=== PATIENT | female | born 1935 | race Caucasian/White ===

== ENCOUNTER → 2016-05-24 | Outpatient (CLI) | payer MEDICARE, BC ==
--- NOTE | 2016-05-24 15:17 | XR ---
EXAMINATION TYPE: XR chest 2V DATE OF EXAM: 05/24/2016 2:42 PM COMPARISON: Prior chest x-ray July HISTORY: Cough, abnormal chest x-ray TECHNIQUE: Frontal and lateral views of the chest are obtained. FINDINGS: Pacemaker is present with the generator in the left pectoral region, leads are present in the right atrium and ventricle. No evident pneumothorax or pleural effusion. Old right-sided rib frac tures are again noted, interstitium is prominent as is lung volume as on prior exam consistent with e mphysema. Cardiomediastinal silhouette, pulmonary vascularity and polo are stable. IMPRESSION: Stable exam. Interstitial lung disease.
== END | disposition home or self-care (01) ==
LOC: RADXRMAIN 14:25
PROVIDERS: ATTEND Internal Medicine
DX: J84.9 Interstitial pulmonary disease, unspecified (principal)
CPT/HCPCS: 71020

== ENCOUNTER 2016-12-08 13:41 | Emergency (ER) | payer MEDICARE, BC ==
[2016-12-08 13:47] VITALS: BP 124/59; PULSE 76; RESP 20; TEMP 97.9
--- NOTE | 2016-12-08 14:02 | ED ---
Fall HPI - General Chief Complaint: Fall Stated Complaint: fall/rt shoulder injury Time Seen by Provider: 12/08/16 13:49 Source: patient, RN notes reviewed, old records reviewed Mode of arrival: wheelchair - History of Present Illness Initial Comments: Physical is an 81-year-old female presenting to emergency Department with right shoulder and elbow pain. Patient reports that she was walking out of her kitchen, and tripped over a small step. Patient reports that she felt that time and majority of her weight landed on her right elbow and right shoulder. Denies any wrist or hand pain. Patient states that is very painful for her to move her shoulder. Patient states that she's been putting ice on it. Patient relates that she is right-handed. She states that she also has previous injuries to her right hip but denies any difficulty with ambulation. Patient denies any head injury or neck injury. She reports that she did not hit her head on the fall. Patient has a history of A. fib, she does have a pacemaker in place and is on Coumadin. Patient denies any recent fever, chills, shortness of breath, chest pain, back pain, abdominal pain, nausea vomiting, numbness or tingling, dysuria or hematuria, constipation or diarrhea, headaches or visual changes, or any other current symptoms - Related Data Home Medications Medication Instructions Recorded Confirmed Warfarin [Coumadin] 5 mg PO MOFR 08/28/13 01/28/15 ALPRAZolam 0.5 mg PO DAILY 05/22/14 01/28/15 Chlorthalidone 50 mg PO DAILY 05/22/14 01/28/15 Cholecalciferol [Vitamin D3] 1,000 unit PO DAILY 05/22/14 01/28/15 Potassium Gluconate(595mg) 595 mg PO BID 05/22/14 01/28/15 Pravastatin Sodium 40 mg PO HS 05/22/14 01/28/15 Warfarin [Coumadin] 7.5 mg PO SUTUWETHSA 05/22/14 01/28/15 Cyanocobalamin [Vitamin B-12] 500 mcg PO DAILY 01/28/15 01/28/15 Previous Rx's Medication Instructions Recorded Atenolol [Tenormin] 50 mg PO BID #60 tab 02/01/15 Furosemide [Lasix] 20 mg PO DAILY #60 tab 02/01/15 Acetaminophen-Codeine 300-30mg 1 tab PO Q6H PRN #15 tablet 12/08/16 [Tylenol #3] Allergies Allergy/AdvReac Type Severity Reaction Status Date / Time Nitroimidazoles Allergy Unknown Verified 12/08/16 13:47 Tetracyclines Allergy Unknown Verified 12/08/16 13:47 niacin AdvReac Unknown Verified 12/08/16 13:47 Niacin Preparations AdvReac Unknown Verified 12/08/16 13:47 pantoprazole sodium AdvReac Nausea & Verified 12/08/16 13:47 [From Protonix] Vomiting Penicillins AdvReac COULDN'T Verified 12/08/16 13:47 WALK NEXT DAY AFTER TAKING Review of Systems ROS Statement: Those systems with pertinent positive or pertinent negative responses have been documented in the HPI. ROS Other: All systems not noted in ROS Statement are negative. Past Medical History Past Medical History: Atrial Fibrillation, Hypertension Additional Past Medical History / Comment(s): ovarian CA History of Any Multi-Drug Resistant Organisms: None Reported Past Surgical History: Ablation, Appendectomy, Hernia Repair, Hysterectomy Additional Past Surgical History / Comment(s): ovarian surgery, hemmorhoid surgery, ([employer]) pacemaker placed in 05/2014 Past Psychological History: No Psychological Hx Reported Smoking Status: Never smoker Past Alcohol Use History: None Reported Past Drug Use History: None Reported - Past Family History Mother Family Medical History: Cancer Father History Unknown: Yes Additional Family Medical History / Comment(s): very early General Exam - General Exam Comments Initial Comments: This is a 81-year-old female. Patient does not appear to be in any acute distress. Limitations: no limitations General appearance: alert, in no apparent distress Head exam: Present: atraumatic, normocephalic, normal inspection Eye exam: Present: normal appearance, PERRL, EOMI. Absent: scleral icterus, conjunctival injection, periorbital swelling ENT exam: Present: normal exam, mucous membranes moist Neck exam: Present: normal inspection. Absent: tenderness, meningismus, lymphadenopathy Respiratory exam: Present: normal lung sounds bilaterally. Absent: respiratory distress, wheezes, rales, rhonchi, stridor Cardiovascular Exam: Present: regular rate, normal rhythm, normal heart sounds. Absent: systolic murmur, diastolic murmur, rubs, gallop, clicks GI/Abdominal exam: Present: soft, normal bowel sounds. Absent: distended, tenderness, guarding, rebound, rigid Extremities exam: Present: normal inspection, full ROM, normal capillary refill. Absent: tenderness, pedal edema, joint swelling, calf tenderness Right Shoulder Exam: Present: deformity. Absent: normal inspection, full ROM ( Patient unable to flex and extend shoulder. ) Elbow exam: Present: tenderness (over olecranon process ), abrasion. Absent: normal inspection Forearm Wrist exam: Present: normal inspection Hand Wrist exam: Present: normal inspection, full ROM Neuro motor exam: Present: wrist extension intact, thumb opposition intact, thumb IP flexion intact, thumb adduction intact, fingers 2-5 abduction intact Vascular: Present: normal capillary refill Back exam: Present: normal inspection Neurological exam: Present: alert, oriented X3, CN II-XII intact Psychiatric exam: Present: normal affect Skin exam: Present: warm, dry, intact, normal color. Absent: rash Course Vital Signs 12/08/16 13:43 Temperature 97.9 F Pulse Rate 76 Respiratory 20 Rate Blood Pressure 124/59 O2 Sat by Pulse 95 Oximetry Medical Decision Making - Medical Decision Making Physical is an 81-year-old female presenting to emergency Department with right shoulder and elbow pain. Patient reports that she was walking out of her kitchen, and tripped over a small step. Patient reports that she felt that time and majority of her weight landed on her right elbow and right shoulder. Denies any wrist or hand pain. Patient states that is very painful for her to move her shoulder. Patient states that she's been putting ice on it. Patient relates that she is right-handed. She states that she also has previous injuries to her right hip but denies any difficulty with ambulation. Patient denies any head injury or neck injury. She reports that she did not hit her head on the fall. Patient has a history of A. fib, she does have a pacemaker in place and is on Coumadin. is somewhat tender over the EC process, as well as some mild abrasions over her elbow. She is somewhat tender over the olecranon process. She does have some pain with range of motion of her shoulder. X-rays were performed. Negative for any significant fracture or dislocation. Patient was informed of these results and is very pleased. Patient was placed in a sling. Discussed they do on her follow-up with orthopedic physician as she seems to have a rotator cuff injury and tear as well as a minor before meals joint contusion. Patient understands treatment plan will comply. Discussed icing and taking Motrin and Tylenol. Return parameters were discussed. - Radiology Data Radiology results: report reviewed There is loss of the glenohumeral joint with marginal spring. Subchondral sclerosis. Hypertrophic changes present at the proximal medicine humerus calcification may represent local rotator cuff insertion is on prior chest x- ray. Bone mineralization is reduced. Hypertrophic change at the before meals joint. Overall impression is no acute fracture dislocation evident. Gastroenteritis. Possible calcific tendinitis rotator cuff. Surgery of the elbow shows no acute fracture dislocation. Disposition Clinical Impression: Injury of right rotator cuff, Fall Disposition: HOME SELF-CARE Condition: Good Instructions: Fall Prevention for Older Adults (ED) Additional Instructions: Advised to take Motrin or Tylenol for pain. Follow-up with orthopedic physician. Return to the emergency department if any alarming signs or symptoms occur. Prescriptions: Acetaminophen-Codeine 300-30mg [Tylenol #3] 1 tab PO Q6H PRN #15 tablet PRN Reason: Pain Referrals: Amelia Cuenca MD [Primary Care Provider] - 1-2 days Ferny Merchant DO [Doctor of Osteopathic Medicine] - 1-2 days Time of Disposition: 14:47
--- NOTE | 2016-12-08 14:24 | XR ---
EXAMINATION TYPE: XR elbow complete RT DATE OF EXAM: 12/08/2016 CLINICAL HISTORY: Right elbow pain after fall injury today TECHNIQUE: Frontal, lateral and oblique images of the right elbow are obtained. COMPARISON: None FINDINGS: There is no acute fracture/dislocation evident in the right elbow. No abnormal fat pad si gns are seen. The overlying soft tissue appears unremarkable. IMPRESSION: There is no acute fracture or dislocation in the right elbow.
--- NOTE | 2016-12-08 14:26 | XR ---
Right shoulder HISTORY: Trauma and pain 3 views of the right shoulder Chest x-ray 05/24/2016 There is joint space loss of the glenohumeral joint with marginal spurring, subchondral sclerosis. Hy pertrophic changes present at the proximal metaphysis of the right humerus, calcification may be pres ent at the level of the rotator cuff insertion as on prior chest x-ray. Bone mineralization is somewh at reduced. Hypertrophic change present at the acromioclavicular joint. Old right-sided rib fractures which have healed are present and noted incidentally at the 6 and seventh ribs posterior laterally. Pacemaker leads are noted incidentally. IMPRESSION: No acute fracture or dislocation is evident. Osteoarthritis. Possible calcific tendinitis rotator cuff.
== END 2016-12-08 14:58 | disposition home or self-care (01) ==
LOC: EC 13:41
DX: S46.001A Unspecified injury of muscle(s) and tendon(s) of the rotator cuff of right shoulder, initial encounter (principal); I10 Essential (primary) hypertension; I48.91 Unspecified atrial fibrillation; Z85.43 Personal history of malignant neoplasm of ovary; Z95.0 Presence of cardiac pacemaker; Z88.1 Allergy status to other antibiotic agents; Z88.0 Allergy status to penicillin; Z88.8 Allergy status to other drugs, medicaments and biological substances; Z79.01 Long term (current) use of anticoagulants; Z79.899 Other long term (current) drug therapy; W01.0XXA Fall on same level from slipping, tripping and stumbling without subsequent striking against object, initial encounter; Y93.01 Activity, walking, marching and hiking; Y92.090 Kitchen in other non-institutional residence as the place of occurrence of the external cause
CPT/HCPCS: 99284

== ENCOUNTER → 2017-04-20 | Outpatient (CLI) | payer MEDICARE, BC | END | disposition home or self-care (01) | LOC: LABPAT 12:40 | PROVIDERS: ATTEND Orthopaedic Surgery | DX: Z01.812 Encounter for preprocedural laboratory examination (principal) | CPT/HCPCS: 87070 ==

== ENCOUNTER → 2017-04-27 | Outpatient (CLI) | payer MEDICARE, BC ==
[2017-04-27 10:30] LABS: HCT 45.4 % (34.0-46.0); HGB 14.8 gm/dL (11.4-16.0); MCH 28.6 pg (25.0-35.0); MCHC 32.7 g/dL (31.0-37.0); MCV 87.4 fL (80.0-100.0); Mean Platelet Volume 8.7; Platelet Count 174 k/uL (150-450); RBC 5.19 m/uL (3.80-5.40); RDW 13.6 % (11.5-15.5); WBC 7.6 k/uL (3.8-10.6)
[2017-04-27 10:33] LABS: Appearance,Urine Clear (Clear); Bilirubin,Urine Negative (Negative); Blood,Urine Negative (Negative); Color,Urine Yellow; Glucose,Urine (UA) Negative (Negative); Ketones,Urine Negative (Negative); Leukocyte Esterase,Urine Negative (Negative); Nitrite,Urine Negative (Negative); Protein,Urine Negative (Negative); Specific Gravity,Urine 1.006 (1.001-1.035); Urobilinogen,Urine <2.0 mg/dL (<2.0)
[2017-04-27 10:37] LABS: INR 1.5 (<1.2); Partial Thromboplastin Time 27.7 sec (22.0-30.0); Prothrombin Time 14.1 sec (9.0-12.0)
[2017-04-27 10:52] LABS: ALT 31 U/L (9-52); AST 35 U/L (14-36); Albumin 4.3 g/dL (3.5-5.0); Alkaline Phosphatase 103 U/L (38-126); Anion Gap 12 mmol/L; Blood Urea Nitrogen 18 mg/dL (7-17); Carbon Dioxide 30 mmol/L (22-30); Chloride 97 mmol/L (98-107); Glucose 86 mg/dL (74-99); Potassium 3.6 mmol/L (3.5-5.1); Sodium 139 mmol/L (137-145); Total Bilirubin 0.9 mg/dL (0.2-1.3); Total Protein 6.8 g/dL (6.3-8.2)
== END | disposition home or self-care (01) ==
LOC: LABPAT 09:39
PROVIDERS: ATTEND Orthopaedic Surgery
DX: Z01.812 Encounter for preprocedural laboratory examination (principal); M16.11 Unilateral primary osteoarthritis, right hip; Z79.01 Long term (current) use of anticoagulants
CPT/HCPCS: 36415; 80053; 81003; 85027; 85610; 85730

== ENCOUNTER 2017-04-30 06:07 | Inpatient (IN) | payer MEDICARE, BC ==
[2017-04-19 11:42] VITALS: BMI 27.1
[~2017-04-30 06:07] MED LIST: ACETAMINOPHEN TAB 500 MG TAB PO ONE; HYDROmorphone 0.5 MG/0.5 ML SYRINGE IVP PRN; MELOXICAM 7.5 MG TAB PO ONE; MORPHINE SULFATE 4 MG/ML SYRINGE IV PRN; ONDANSETRON 4 MG/2 ML VIAL IVP PRN; ROPIVACAINE 246.25 MG, EPINEPHrine 0.5 MG, KETOROLAC 30 MG, cloNIDine HCL/PF 80 MCG, WA... MISCELLANE ONE; TRANEXAMIC ACID 1,000 MG in SODIUM CHLORIDE 0.9% 50 ML IVPB ONE; ceFAZolin IN SWFI 2 GM/20 ML SYRINGE IVP ONE
[2017-04-30] MEDS: LACTATED RINGERS 1,000 ML IV SCH ×4 (06:37→23:57)
[2017-04-30 06:57] LABS: INR 1.1 (<1.2); Prothrombin Time 10.9 sec (9.0-12.0)
[2017-04-30] MEDS ORDERED: DEXAMETHASONE SOD PHOSPHATE 10 MG/ML 1 ML VIAL IV ONE (07:08)
[2017-04-30] MEDS ORDERED: SODIUM CHLORIDE 0.9% 100 ML BAG ONE (07:24)
[2017-04-30] MEDS ORDERED: fentaNYL (PF) 50 MCG/ML 2 ML AMP ONE (07:24)
[2017-04-30] MEDS ORDERED: MIDAZOLAM 2 MG/2 ML VIAL ONE (07:24)
[2017-04-30] MEDS ORDERED: diphenhydrAMINE 50 MG/ML 1 ML VIAL ONE (07:24)
[2017-04-30] MEDS ORDERED: TRANEXAMIC ACID 1,000 MG/10 ML VIAL ONE (07:24)
[2017-04-30] MEDS ORDERED: SODIUM CHLORIDE 0.9% 1,000 ML BAG ONE (07:24)
[2017-04-30] MEDS ORDERED: HEPARIN SODIUM,PORCINE 5,000 UNIT/ML 1 ML VIAL ONE (07:24)
[2017-04-30] MEDS ORDERED: ceFAZolin 1,000 MG in SODIUM CHLORIDE 0.9% 1,000 ML IRRIGATION ONE ×2 (07:25→08:42)
[2017-04-30] MEDS ORDERED: MAGNESIUM HYDROXIDE 2,400 MG/10 ML CUP PO PRN (07:27)
[2017-04-30] MEDS ORDERED: hydrOXYzine PAMOATE 25 MG CAP PO PRN (07:27)
[2017-04-30] MEDS ORDERED: DIAZEPAM 5 MG TAB PO PRN ×2 (07:27)
[2017-04-30] MEDS ORDERED: NALOXONE 0.4 MG/ML 1 ML VIAL IV PRN (07:27)
[2017-04-30] MEDS ORDERED: HYDROmorphone 0.5 MG/0.5 ML SYRINGE IVP PRN ×3 (07:27)
[2017-04-30] MEDS ORDERED: SODIUM CHLORIDE 0.9% 1,000 ML IV SCH (07:30)
[2017-04-30] MEDS ORDERED: LACTATED RINGERS 1,000 ML IV ONE (09:03)
--- NOTE | 2017-04-30 09:06 | P.OP ---
Date of Procedure: 04/30/17 Preoperative Diagnosis: Severe osteoarthritis right hip Postoperative Diagnosis: Severe osteoarthritis right hip Procedure(s) Performed: Right total hip arthroplasty with a direct anterior approach Implants: Masters and nephew Polarstem size 4 standard Masters [employer] Nephew R3, 3 hole acetabular shell, 52 mm [employer]hew reflection 6.5 mm cancellus screw, 20 mm 2 [employer]hew R3, XLPE 20 acetabular liner [employer] Nephew Oxinium femoral head 36 m, +4 All components were press-fit. The articulation is Oxinium on polyethylene. Anesthesia: spinal Surgeon: Ferny Merchant Manager Sustainability #1: Mimi Cooper Estimated Blood Loss (ml): 100 Pathology: other (Femoral head) Condition: stable Disposition: PACU Indications for Procedure: After failure of conservative treatment we discussed the surgical and nonsurgical treatment options at length. Patient wishes to proceed with a total hip arthroplasty with a direct anterior approach. Complications specific to this procedure were discussed at length, including but not limited to infection, leg length discrepancy, dislocation, and nerve injury. Patient is aware of all these complications and informed consent was obtained Operative Findings: The operative findings are consistent with severe osteoarthritis of the right hip Description of Procedure: Patient was seen and evaluated in the preoperative area, consent was reviewed, and the surgical site was marked with a skin marker. Patient was then brought to the operating room and given prophylactic antibiotics intravenously. 1 g of Tranexamic acid was also given. A spinal anesthetic was administered by the anesthesia department. The patient was then placed on the [place] table with the bony prominences well-padded. The hip area was then prepped and draped in usual sterile fashion. A universal timeout was then performed, which confirmed the patient's name, surgical site, ALLERGIES, and procedure being performed. Next the incision site was located at 1 cm distal and 1 cm lateral to the anterior superior iliac spine. The skin and subcutaneous tissues were sharply incised. Incision was carefully dissected down to the fascia overlying the tensor fascia annetta muscle. This fascia was then incised in line with the incision. Next, using blunt finger dissection, the tensor fascia annetta muscle was dissected off its investing fascia. The muscle was then carefully retracted laterally with a cobra retractor over the lateral neck of the femur. Next, the circumflex vessels were identified and cauterized using the AquaMantis device. The anterior hip capsule was then exposed. The capsule was then opened and an inverted T fashion. Cobra retractors were then placed intracapsularly. The proximal femur was then visualized. The femoral neck was then osteotomized appropriate level above the lesser trochanter. Small amount of traction was placed with the [place] table. A small wedge of bone was then removed from the remaining femoral head. Next, using a corkscrew femoral head was easily removed from the acetabulum. On gross visual inspection, the femoral head had complete loss of articular cartilage in multiple periarticular osteophytes. Attention was then turned to the acetabulum. the acetabulum was exposed and any remaining labrum was excised. Sequential reaming of the acetabulum was performed using fluoroscopic guidance. When the appropriate size was reached, a trial was then placed. The position and fit of the trial was checked with fluoroscopy. The trial was then removed. Then, using fluoroscopic guidance, the final implant was impacted at 20 of anteversion and 40 of abduction, and fully seated in the acetabulum. 2 screws were then placed in the acetabulum. Again fluoroscopy was used to check position of the screws. Next, the liner was then impacted, with a 20 elevated liner located in the anterior superior quadrant. Component locking was confirmed. Attention was then directed to the femur. With the aid of the [place] table, the femur was externally rotated to approximately 130, extended, and abducted under the opposite leg. A side hook was then placed under the proximal femur, and the side hook elevator was used to elevate the proximal femur. Retractors were then placed. A capsular release was performed, as well as a release of the conjoined tendon, which afforded excellent visualization of the proximal femur. Next, a box osteotome was used to lateralize the proximal femur. A button sewer hand was then used to locate the femoral canal. Sequential broaching was then performed with appropriate size which afforded excellent fixation in the proximal femur. A trial was then placed with appropriate head and neck, and the hip was gently reduced with the aid of the [place] table. Fluoroscopy was then used to check position of the components, as well as to ensure equal leg lengths. The hip was then gently dislocated and the trials were then removed. Final implants were then impacted and the hip was again reduced. Final fluoroscopic x-rays confirmed that the components were in anatomic position, as well as equal leg lengths. The hip was also taken through range of motion, and found to be stable. The hip was then copiously irrigated with antibiotic solution with pulsatile lavage. The hip was then irrigated with Irrisept solution. The soft tissues were then injected with a ropivacaine solution, which consisted of 246.25 mg of ropivacaine, 0.5 mg of epinephrine, 30 mg of Toradol, 80 g of clonidine, and 48.45 mL of sterile water, for a total of 100 mL of fluid injected. A second dose of 1 g of Tranexamic acid was also given. the fascia was then closed with 2-0 strata fix suture. The subcutaneous tissue was closed with 3-0 Vicryl. The subcuticular tissue was closed with 3-0 strata fix suture. The skin was then closed with Dermabond glue and a sterile silver dressing. The patient was then transferred to the recovery room in stable condition. The health center assistant JUSTIN Sanz was required due to the complexity of surgery, and the need for skilled animal assistant for positioning, draping, exposure, retraction, and closure of the wound.
--- NOTE | 2017-04-30 09:48 | XR ---
Limited right hip HISTORY: Postop Single frontal view of the right hip Patient is status post right hip arthroplasty. There is anatomic alignment. Lucency present in the so ft tissues compatible with postop state. IMPRESSION: Orthopedic follow-up
--- NOTE | 2017-04-30 11:04 | XR ---
Limited right hip HISTORY: Status post hip arthroplasty 2 intraoperative C-arm images document the procedure
--- NOTE | 2017-04-30 11:22 | FL ---
Fluoroscopy HISTORY: Hip replacement 1.11 minutes fluoroscopy time supplied to the referring clinician. 2 intraoperative C-arm images doc ument the procedure. See dictated report from orthopedic surgery.
[2017-04-30] MEDS ORDERED: ALPRAZolam 0.5 MG TAB PO PRN (14:44)
--- NOTE | 2017-04-30 15:05 | P.CONS ---
History of Present Illness - Reason for Consult Consult date: 04/30/17 Medical management Requesting physician: Ferny Merchant - Chief Complaint Status post right total hip arthroplasty - History of Present Illness This is a 82-year-old female with a past medical history of paroxysmal atrial fibrillation, chronic diastolic congestive heart failure, hypertension, hyperlipidemia and pacemaker placement. Patient has a known history of arthritis or arthritis of the right hip and underwent a right total hip arthroplasty with Dr. Merchant. She tolerated surgery well. Estimated blood loss was 100 mL. She is currently sitting up at bedside chair with family at bedside. Patient's pain is controlled. She denies any chest pain or shortness breath. Denies any nausea or vomiting. Denies any bowel movement changes or urinary symptoms. Postop blood pressures she had some evidence of hypotension. We'll have nursing staff repeat blood pressure. We'll hold diuretics. And place parameters around the metoprolol and Cardizem. Review of Systems Please refer to HPI otherwise unremarkable Past Medical History Past Medical History: Atrial Fibrillation, Heart Failure, Hyperlipidemia, Hypertension Additional Past Medical History / Comment(s): ovarian CA 1980 History of Any Multi-Drug Resistant Organisms: None Reported Past Surgical History: Appendectomy, Cardiac Ablation, Hernia Repair, Hysterectomy, Joint Replacement, Pacemaker Additional Past Surgical History / Comment(s): ovarian surgery, hemmorhoid surgery, (meditronic) pacemaker placed in 05/2014,cardiac ablation, right hip replacement Past Anesthesia/Blood Transfusion Reactions: No Reported Reaction Additional Past Anesthesia/Blood Transfusion Reaction / Comm: unknown family hx.no problems with prior blood transfusion > 40 yrs ago Type of Cardiac Device: Permanent Pacemaker Device Placement Date:: 05/2014 Past Psychological History: Anxiety Smoking Status: Former smoker Past Alcohol Use History: None Reported Additional Past Alcohol Use History / Comment(s): quit smoking 1985,started smoking at age 17,1ppd Past Drug Use History: None Reported - Past Family History Mother Family Medical History: Cancer Father History Unknown: Yes Additional Family Medical History / Comment(s): very early Medications and Allergies Home Medications Medication Instructions Recorded Confirmed Type Warfarin [Coumadin] 5 mg PO MOTUWEFRSA 08/28/13 04/30/17 History ALPRAZolam 0.5 mg PO BID PRN 05/22/14 04/30/17 History Chlorthalidone 50 mg PO DAILY 05/22/14 04/30/17 History Cholecalciferol [Vitamin D3] 1,000 unit PO DAILY 05/22/14 04/30/17 History Pravastatin Sodium 40 mg PO HS 05/22/14 04/30/17 History Warfarin [Coumadin] 7.5 mg PO SUTH 05/22/14 04/30/17 History Furosemide [Lasix] 20 mg PO DAILY #60 tab 02/01/15 04/30/17 Rx ALPRAZolam [Xanax] 0.25 mg PO HS 04/19/17 04/30/17 History Diltiazem HCl [Cartia Xt] 120 mg PO BID 04/19/17 04/30/17 History Metoprolol Tartrate [Lopressor] 50 mg PO BID 04/19/17 04/30/17 History Potassium 198 mg PO DAILY 04/19/17 04/30/17 History Vitamin B Complex 1 cap PO DAILY 04/19/17 04/30/17 History Allergies Allergy/AdvReac Type Severity Reaction Status Date / Time Nitroimidazoles Allergy Unknown Verified 04/30/17 11:22 Tetracyclines Allergy Unknown Verified 04/30/17 11:22 niacin AdvReac Unknown Verified 04/30/17 11:22 Niacin Preparations AdvReac Unknown Verified 04/30/17 11:22 pantoprazole sodium AdvReac Nausea & Verified 04/30/17 11:22 [From Protonix] Vomiting Penicillins AdvReac COULDN'T Verified 04/30/17 11:22 WALK NEXT DAY AFTER TAKING Physical Exam Vitals: Vital Signs Temp Pulse Pulse Resp BP BP Pulse Ox 04/30/17 12:50 84 109/72 04/30/17 12:35 125 H 106/67 04/30/17 12:20 95 84/49 04/30/17 12:05 81 93/47 04/30/17 11:50 90 97/52 04/30/17 11:35 77 94/57 04/30/17 11:20 76 88/47 04/30/17 11:05 72 98/53 04/30/17 10:50 93 96/67 04/30/17 10:35 77 90/54 04/30/17 10:20 76 107/59 04/30/17 10:05 97.6 F 86 16 100/52 95 04/30/17 09:47 114 H 16 104/49 93 L 04/30/17 09:30 91 16 101/59 100 04/30/17 09:15 90 16 102/51 100 04/30/17 09:12 97.8 F 90 16 91/53 100 04/30/17 06:55 97.3 F L 73 18 123/61 96 04/30/17 01:05 99 112/61 Intake and Output 04/29/17 04/30/17 04/30/17 22:59 06:59 14:59 Intake Total 1102 Output Total 100 Balance 1002 Intake: IV 1102 Output: Estimated Blood Loss 100 Other: Weight 71.668 kg Patient Weight 05/01/17 06:59 Weight 71.668 kg Head normocephalic Neck supple Lungs clear to auscultation bilaterally no wheezing or crackles Heart regular rate and rhythm S1-S2, no rub or gallop Abdomen is soft nontender nondistended positive bowel sounds no hepatosplenomegaly Extremities no edema. YOSEPH hose in place. Pedal patient is able to wiggle her toes. +2 dorsalis pedis pulse. No numbness with palpation of her feet and legs. Dressing on the right hip clean dry and intact Neuro alert and orientated to 3 Assessment and Plan Assessment: 1. Osteoarthritis of the right hip status post right total hip arthroplasty anterior approach. Estimated blood loss 100 mL. Continue with current pain medications. Patient restarted on her Coumadin for DVT prophylaxis 2. History of paroxysmal atrial fibrillation: Anticoagulated with Coumadin at home. Coumadin had been on hold prior to surgery. Coumadin will be restarted tonight by orthopedics. Monitor PT/INRs. Continue metoprolol and Cardizem for rate control 3. Essential hypertension: Patient has had some episodes of hypotension after surgery. She is receiving fluids. Repeat blood pressure has been ordered. At this time we'll hold her Lasix and hydrochlorothiazide. Place parameters around the metoprolol to hold for systolic blood pressure less than 110 or heart rate less than 55 and Cardizem hold for systolic blood pressure less than 115 4. History of pacemaker 5. History of chronic diastolic CHF. No evidence of exacerbation 6. History of ovarian cancer 7. Generalized anxiety disorder continue with her Xanax 8. Hyperlipidemia continue her pravastatin GI prophylaxis Pepcid and DVT prophylaxis Coumadin Thank you for this consultation. We will continue to follow along with patient during her hospitalization. Time with Patient: Greater than 30 (Greater than 50% of the total time spent in counseling and coordination of care.I performed an examination of the patient and discussed their management with the physician Pharmacy Sales Representative. I have reviewed the Physician Pharmacy Sales Representative's notes and agree with the documented findings and plan of care)
[2017-04-30] MEDS: ceFAZolin IN SWFI 2 GM/20 ML SYRINGE IVP SCH ×2 (17:46→23:04)
[2017-04-30] MEDS ORDERED: WARFARIN 2.5 MG TAB PO ONE (18:00)
[2017-04-30] MEDS ORDERED: SODIUM CHLORIDE 0.9% 250 ML IV ONE (22:22)
[2017-04-30] MEDS: ALPRAZolam 0.25 MG TAB PO SCH (22:29)
[2017-04-30] MEDS: HYDROcodone/APAP 5-325MG 1 EACH TAB PO PRN (22:29)
[2017-04-30] MEDS: DILTIAZEM CD 120 MG CAP.ER.24H PO SCH (22:30)
[2017-04-30] MEDS: METOPROLOL TARTRATE 50 MG TAB PO SCH (22:34)
[2017-04-30] MEDS: PRAVASTATIN SODIUM 40 MG TAB PO SCH (22:34)
[2017-04-30] MEDS: SODIUM CHLORIDE 0.9% 1,000 ML IV SCH (23:57)
[2017-05-01 07:38] LABS: Basophils % (A) 0 %; Eosinophils % (A) 0 %; HCT 35.3 % (34.0-46.0); HGB 11.9 gm/dL (11.4-16.0); Lymphocytes # (A) 1.1 k/uL (1.0-4.8); Lymphocytes % (A) 9 %; MCH 29.3 pg (25.0-35.0); MCHC 33.6 g/dL (31.0-37.0); MCV 87.3 fL (80.0-100.0); Mean Platelet Volume 8.5; Monocytes # (A) 0.6 k/uL (0-1.0); Monocytes % (A) 5 %; Neutrophils # (A) 10.9 k/uL (1.3-7.7); Neutrophils % (A) 85 %; Platelet Count 132 k/uL (150-450); RBC 4.05 m/uL (3.80-5.40); RDW 13.7 % (11.5-15.5); WBC 12.8 k/uL (3.8-10.6)
[2017-05-01 07:40] LABS: INR 1.1 (<1.2)
[2017-05-01 07:46] LABS: ALT 24 U/L (9-52); AST 44 U/L (14-36); Albumin 3.1 g/dL (3.5-5.0); Alkaline Phosphatase 73 U/L (38-126); Anion Gap 11 mmol/L; Blood Urea Nitrogen 18 mg/dL (7-17); Carbon Dioxide 28 mmol/L (22-30); Chloride 98 mmol/L (98-107); Glucose 154 mg/dL (74-99); Potassium 3.2 mmol/L (3.5-5.1); Sodium 137 mmol/L (137-145); Total Bilirubin 0.9 mg/dL (0.2-1.3); Total Protein 5.1 g/dL (6.3-8.2)
[2017-05-01] MEDS ORDERED: METOPROLOL TARTRATE 25 MG TAB PO STA (08:23)
[2017-05-01] MEDS: METOPROLOL TARTRATE 50 MG TAB PO SCH ×2 (08:24→21:03)
[2017-05-01] MEDS: DILTIAZEM CD 120 MG CAP.ER.24H PO SCH ×2 (08:24→21:04)
[2017-05-01] MEDS ORDERED: POTASSIUM CHLORIDE ER 20 MEQ TAB.ER PO STA (08:31)
--- NOTE | 2017-05-01 09:52 | P.PN ---
Subjective Progress Note Date: 05/01/17 This is an 82-year-old female who is status post right total hip arthroplasty. This is postoperative day #1. Patient states her pain is well-controlled and she has been up and walking without difficulty. Patient denies any fever/chills , numbness, weakness, tingling, abdominal pain, shortness of breath or chest pain. Objective - Vital Signs Vital signs: Vital Signs Temp 97.6 F 05/01/17 07:00 Pulse 95 05/01/17 07:00 Resp 16 05/01/17 07:00 BP 99/63 05/01/17 07:00 Pulse Ox 96 05/01/17 07:00 Intake & Output 04/30/17 05/01/17 05/01/17 18:59 06:59 18:59 Intake Total 1297 1127.5 Output Total 100 Balance 1197 1127.5 Weight 71.668 kg Intake: IV 1102 Intake, IV Titration 195 927.5 Amount Sodium Chloride 0.9% 1, 927.5 000 ml @ 100 mls/hr IV . Q10H [facility] Rx#:[id number] Sodium Chloride 0.9% 1, 195 000 ml @ 65 mls/hr IV . [id number] [facility] Rx#:[id number] Oral 200 Output: Estimated Blood Loss 100 Other: Voiding Method Toilet # Voids 1 - Exam Vital signs are stable. Patient is in no acute distress and is alert and oriented 3. Calf is soft and nontender to palpation. Dressing is clean, dry, and intact. Patient has full foot and ankle motion without pain or difficulty. Neurovascular status and circulatory status are intact. - Labs CBC & Chem 7: 05/01/17 06:59 05/01/17 06:59 Labs: Abnormal Lab Results - Last 24 Hours (Table) 05/01/17 05/01/17 Range/Units 06:59 06:59 WBC 12.8 H (3.8-10.6) k/uL Plt Count 132 L (150-450) k/uL Neutrophils # 10.9 H (1.3-7.7) k/uL Potassium 3.2 L (3.5-5.1) mmol/L BUN 18 H (7-17) mg/dL Glucose 154 H (74-99) mg/dL AST 44 H (14-36) U/L Total Protein 5.1 L (6.3-8.2) g/dL Albumin 3.1 L (3.5-5.0) g/dL Assessment and Plan (1) Primary osteoarthritis of right hip Current Visit: Yes Status: Acute Code(s): M16.11 - UNILATERAL PRIMARY OSTEOARTHRITIS, RIGHT HIP SNOMED Code(s): 386015705 (2) S/P total hip arthroplasty Current Visit: Yes Status: Acute Code(s): Z96.649 - PRESENCE OF UNSPECIFIED ARTIFICIAL HIP JOINT SNOMED Code(s): 586825503617 Plan: Continue routine postop care. Continue antocoagulation. Weightbearing as tolerated with a walker Leave dressing in place for 1 week Planning for discharge to rehab on
--- NOTE | 2017-05-01 11:18 | XR ---
EXAMINATION TYPE: XR chest 1V DATE OF EXAM: 05/01/2017 COMPARISON: Prior chest x-ray 05/24/2016 HISTORY: Port-A-Cath placement TECHNIQUE: Single frontal view of the chest is obtained. FINDINGS: There is no focal air space opacity, pleural effusion, or pneumothorax seen. The cardiac silhouette size is stable accounting for differences in technique. Pacemaker is stable with leads in the right atrium and ventricle. There are overlying cardiac leads. Right hemidiaphragm is somewhat el evated. Old posterior right rib fractures appear healed as on prior. The osseous structures are inta ct. IMPRESSION: No acute process. Expiratory rotated exam, follow-up as indicated.
[2017-05-01] MEDS: FAMOTIDINE 20 MG TAB PO SCH (11:22)
[2017-05-01] MEDS: CHOLECALCIFEROL 1,000 UNIT TAB PO SCH (11:22)
[2017-05-01] MEDS: POTASSIUM CHLORIDE ER 20 MEQ TAB.ER PO SCH (11:22)
[2017-05-01] MEDS: B COMPLEX-VIT C-VIT E-ZINC 1 EACH TAB PO SCH (11:22)
[2017-05-01] MEDS: HYDROcodone/APAP 5-325MG 1 EACH TAB PO PRN ×3 (12:29→23:31)
--- NOTE | 2017-05-01 13:19 | P.PN ---
Subjective Progress Note Date: 05/01/17 This is a 82-year-old female with a past medical history of paroxysmal atrial fibrillation, chronic diastolic congestive heart failure, hypertension, hyperlipidemia and pacemaker placement. Patient has a known history of arthritis or arthritis of the right hip and underwent a right total hip arthroplasty with Dr. Merchant. She tolerated surgery well. Estimated blood loss was 100 mL. She is currently sitting up at bedside chair with family at bedside. Patient's pain is controlled. She denies any chest pain or shortness breath. Denies any nausea or vomiting. Denies any bowel movement changes or urinary symptoms. Postop blood pressures she had some evidence of hypotension. We'll have nursing staff repeat blood pressure. We'll hold diuretics. And place parameters around the metoprolol and Cardizem. 05/01/2017 status post right total hip arthroplasty. Pain is Tylenol. Patient had some hypotension yesterday required an IV fluid bolus. And is currently maintained on IV fluids. This morning heart rate had been fluctuating in the 80s to the 120s. Patient was given a dose of metoprolol 25 mg by mouth 1 to help control heart rate. Continue with telemetry monitoring. Patient denies any chest pain, shortness of breath, heart palpitations, nausea vomiting, dizziness or lightheadedness, urination. No bowel movement yet. She is passing gas Objective - Vital Signs Vital signs: Vital Signs Temp 98.7 F 05/01/17 12:23 Pulse 111 H 05/01/17 12:23 Resp 16 05/01/17 07:00 BP 119/75 05/01/17 12:23 Pulse Ox 96 05/01/17 07:00 Intake & Output 04/30/17 05/01/17 05/01/17 18:59 06:59 18:59 Intake Total 1297 1127.5 Output Total 100 Balance 1197 1127.5 Weight 71.668 kg Intake: IV 1102 Intake, IV Titration 195 927.5 Amount Sodium Chloride 0.9% 1, 927.5 000 ml @ 100 mls/hr IV . Q10H [facility] Rx#:[id number] Sodium Chloride 0.9% 1, 195 000 ml @ 65 mls/hr IV . [id number] [facility] Rx#:[id number] Oral 200 Output: Estimated Blood Loss 100 Other: Voiding Method Toilet # Voids 1 - Exam Head normocephalic Neck supple Lungs clear to auscultation bilaterally no wheezing or crackles Heart regular rate and rhythm S1-S2, no rub or gallop Abdomen is soft nontender nondistended positive bowel sounds no hepatosplenomegaly Extremities no edema. Right hip incision clean dry and intact. bruising noted from the incision site Neuro alert and orientated to 3 - Labs CBC & Chem 7: 05/01/17 06:59 05/01/17 06:59 Labs: Abnormal Lab Results - Last 24 Hours (Table) 05/01/17 05/01/17 Range/Units 06:59 06:59 WBC 12.8 H (3.8-10.6) k/uL Plt Count 132 L (150-450) k/uL Neutrophils # 10.9 H (1.3-7.7) k/uL Potassium 3.2 L (3.5-5.1) mmol/L BUN 18 H (7-17) mg/dL Glucose 154 H (74-99) mg/dL AST 44 H (14-36) U/L Total Protein 5.1 L (6.3-8.2) g/dL Albumin 3.1 L (3.5-5.0) g/dL Assessment and Plan Assessment: 1. Osteoarthritis of the right hip status post right total hip arthroplasty anterior approach. Estimated blood loss 100 mL. Continue with current pain medications. Patient restarted on her Coumadin for DVT prophylaxis 2. History of paroxysmal atrial fibrillation: Anticoagulated with Coumadin at home. INR 1.1. Resume patient's home dose of Coumadin. Continue monitor daily PT/INR's. Continue metoprolol and Cardizem for rate control 3. Essential hypertension: Patient has had some episodes of hypotension after surgery. She required IV fluid bolus and is currently on normal saline 100. At this time we'll hold her Lasix and hydrochlorothiazide. Place parameters around the metoprolol to hold for systolic blood pressure less than 110 or heart rate less than 55 and Cardizem hold for systolic blood pressure less than 115 4. History of pacemaker 5. History of chronic diastolic CHF. No evidence of exacerbation 6. History of ovarian cancer 7. Generalized anxiety disorder continue with her Xanax 8. Hyperlipidemia continue her pravastatin 9. Leukocytosis likely reactive after surgery. Continue to monitor 10. Hypokalemia. Patient received potassium supplement. Repeat labs in a.m. GI prophylaxis Pepcid and DVT prophylaxis Coumadin Anticipating discharge to ECF on I performed an examination of the patient and discussed their management with the physician [employer]. I have reviewed the Physician [employer] Counselor's notes and agree with the documented findings and plan of care
[2017-05-01] MEDS: WARFARIN 5 MG TAB PO SCH (18:31)
[2017-05-01] MEDS: ALPRAZolam 0.25 MG TAB PO SCH (20:37)
[2017-05-01] MEDS: SODIUM CHLORIDE 0.9% 1,000 ML IV SCH ×2 (21:04→23:30)
[2017-05-01] MEDS: PRAVASTATIN SODIUM 40 MG TAB PO SCH (21:04)
[2017-05-02] MEDS: SODIUM CHLORIDE 0.9% 1,000 ML IV SCH ×2 (03:51→09:42)
[2017-05-02] MEDS: LACTATED RINGERS 1,000 ML IV SCH (03:51)
[2017-05-02] MEDS: HYDROcodone/APAP 5-325MG 1 EACH TAB PO PRN (06:48)
[2017-05-02 07:54] LABS: Basophils % (A) 0 %; Eosinophils # (A) 0.1 k/uL (0-0.7); Eosinophils % (A) 1 %; HCT 34.9 % (34.0-46.0); HGB 11.6 gm/dL (11.4-16.0); Lymphocytes # (A) 1.5 k/uL (1.0-4.8); Lymphocytes % (A) 14 %; MCH 29.1 pg (25.0-35.0); MCHC 33.3 g/dL (31.0-37.0); MCV 87.4 fL (80.0-100.0); Mean Platelet Volume 8.5; Monocytes # (A) 0.6 k/uL (0-1.0); Monocytes % (A) 6 %; Neutrophils # (A) 8.4 k/uL (1.3-7.7); Neutrophils % (A) 78 %; Platelet Count 132 k/uL (150-450); RBC 3.99 m/uL (3.80-5.40); RDW 13.7 % (11.5-15.5); WBC 10.7 k/uL (3.8-10.6)
[2017-05-02 07:58] LABS: INR 1.1 (<1.2); Prothrombin Time 10.8 sec (9.0-12.0)
[2017-05-02] MEDS: METOPROLOL TARTRATE 50 MG TAB PO SCH ×2 (08:19→20:28)
[2017-05-02] MEDS: DILTIAZEM CD 120 MG CAP.ER.24H PO SCH ×2 (08:19→20:28)
[2017-05-02] MEDS: POTASSIUM CHLORIDE ER 20 MEQ TAB.ER PO SCH (08:19)
[2017-05-02] MEDS: CHOLECALCIFEROL 1,000 UNIT TAB PO SCH (08:19)
[2017-05-02] MEDS: FAMOTIDINE 20 MG TAB PO SCH (08:19)
[2017-05-02 08:20] LABS: ALT 25 U/L (9-52); AST 46 U/L (14-36); Albumin 2.9 g/dL (3.5-5.0); Alkaline Phosphatase 80 U/L (38-126); Anion Gap 9 mmol/L; Blood Urea Nitrogen 11 mg/dL (7-17); Calcium 8.7 mg/dL (8.4-10.2); Carbon Dioxide 28 mmol/L (22-30); Chloride 98 mmol/L (98-107); Glucose 123 mg/dL (74-99); Potassium 3.5 mmol/L (3.5-5.1); Sodium 135 mmol/L (137-145); Total Bilirubin 1.2 mg/dL (0.2-1.3); Total Protein 4.9 g/dL (6.3-8.2)
[2017-05-02] MEDS ORDERED: HYDROcodone/APAP 7.5-325MG 1 EACH TAB PO PRN (09:01)
[2017-05-02] MEDS: B COMPLEX-VIT C-VIT E-ZINC 1 EACH TAB PO SCH (11:49)
[2017-05-02] MEDS: HYDROcodone/APAP 7.5-325MG 1 EACH TAB PO PRN ×2 (13:27→20:27)
[2017-05-02] MEDS: WARFARIN 5 MG TAB PO SCH (17:12)
--- NOTE | 2017-05-02 17:36 | P.PN ---
Subjective Progress Note Date: 05/02/17 This is a 82-year-old female with a past medical history of paroxysmal atrial fibrillation, chronic diastolic congestive heart failure, hypertension, hyperlipidemia and pacemaker placement. Patient has a known history of arthritis or arthritis of the right hip and underwent a right total hip arthroplasty with Dr. Merchant. She tolerated surgery well. Estimated blood loss was 100 mL. She is currently sitting up at bedside chair with family at bedside. Patient's pain is controlled. She denies any chest pain or shortness breath. Denies any nausea or vomiting. Denies any bowel movement changes or urinary symptoms. Postop blood pressures she had some evidence of hypotension. We'll have nursing staff repeat blood pressure. We'll hold diuretics. And place parameters around the metoprolol and Cardizem. 05/01/2017 status post right total hip arthroplasty. Pain is Tylenol. Patient had some hypotension yesterday required an IV fluid bolus. And is currently maintained on IV fluids. This morning heart rate had been fluctuating in the 80s to the 120s. Patient was given a dose of metoprolol 25 mg by mouth 1 to help control heart rate. Continue with telemetry monitoring. Patient denies any chest pain, shortness of breath, heart palpitations, nausea vomiting, dizziness or lightheadedness, urination. No bowel movement yet. She is passing gas. On 05/02/2017 patient is alert and oriented 3 in no apparent distress she is having episodes of tachycardia was heart rate up to 120 she is receiving Cardizem and metoprolol, she is in atrial fibrillation At this time will consult cardiology to assess cardiac medication and see if they need to be adjusted Patient is complaining of lower extremity pain otherwise she denies any complaints there is no chest pain or shortness of breath no nausea or vomiting no abdominal pain and no urinary symptoms Objective - Vital Signs Vital signs: Vital Signs Temp 98.2 F 05/02/17 15:00 Pulse 125 H 05/02/17 15:00 Resp 16 05/02/17 15:00 BP 114/70 05/02/17 15:00 Pulse Ox 95 05/02/17 15:00 Intake & Output 05/01/17 05/02/17 05/02/17 18:59 06:59 18:59 Intake Total 800 800 Balance 800 800 Weight 71.668 kg Intake: IV 800 Sodium Chloride 0.9% 1, 800 000 ml @ 100 mls/hr IV . Q10H [facility] Rx#:[id number] Intake, IV Titration 800 Amount Sodium Chloride 0.9% 1, 800 000 ml @ 100 mls/hr IV . Q10H [facility] Rx#:[id number] Other: # Voids 1 1 - Exam HEENT head normocephalic and atraumatic Neck is supple no JVD no goiter no lymphadenopathy Chest exam reveals a few scattered crackles no wheezing Cardiac exam reveals irregular heart sounds with tachycardia no murmurs Abdomen is soft nontender no organomegaly Extremity exam reveals no edema no cyanosis or clubbing - Labs CBC & Chem 7: 05/02/17 07:17 05/02/17 07:17 Labs: Abnormal Lab Results - Last 24 Hours (Table) 05/02/17 05/02/17 Range/Units 07:17 07:17 WBC 10.7 H (3.8-10.6) k/uL Plt Count 132 L (150-450) k/uL Neutrophils # 8.4 H (1.3-7.7) k/uL Sodium 135 L (137-145) mmol/L Glucose 123 H (74-99) mg/dL AST 46 H (14-36) U/L Total Protein 4.9 L (6.3-8.2) g/dL Albumin 2.9 L (3.5-5.0) g/dL Assessment and Plan Plan: 1. Osteoarthritis of the right hip status post right total hip arthroplasty anterior approach. Estimated blood loss 100 mL. Continue with current pain medications. Patient restarted on her Coumadin for DVT prophylaxis 2. History of paroxysmal atrial fibrillation: Anticoagulated with Coumadin at home. INR 1.1. Resume patient's home dose of Coumadin. Continue monitor daily PT/INR's. Continue metoprolol and Cardizem for rate control Heart rate has been high in the 120 range consult cardiology for reevaluation of cardiac medications 3. Essential hypertension: Patient has had some episodes of hypotension after surgery. She required IV fluid bolus and is currently on normal saline 100. At this time we'll hold her Lasix and hydrochlorothiazide. Place parameters around the metoprolol to hold for systolic blood pressure less than 110 or heart rate less than 55 and Cardizem hold for systolic blood pressure less than 115 4. History of pacemaker 5. History of chronic diastolic CHF. No evidence of exacerbation 6. History of ovarian cancer 7. Generalized anxiety disorder continue with her Xanax 8. Hyperlipidemia continue her pravastatin 9. Leukocytosis likely reactive after surgery. Continue to monitor 10. Hypokalemia. Patient received potassium supplement. Repeat labs in a.m. GI prophylaxis Pepcid and DVT prophylaxis Coumadin
[2017-05-02] MEDS: ALPRAZolam 0.25 MG TAB PO SCH (20:27)
[2017-05-02] MEDS: PRAVASTATIN SODIUM 40 MG TAB PO SCH (20:28)
[2017-05-03] MEDS: SODIUM CHLORIDE 0.9% 1,000 ML IV SCH ×2 (02:01→07:40)
[2017-05-03 06:39] LABS: Basophils % (A) 1 %; Eosinophils # (A) 0.1 k/uL (0-0.7); Eosinophils % (A) 1 %; HGB 10.8 gm/dL (11.4-16.0); Lymphocytes # (A) 1.2 k/uL (1.0-4.8); Lymphocytes % (A) 14 %; MCHC 31.9 g/dL (31.0-37.0); Mean Platelet Volume 8.6; Monocytes # (A) 0.5 k/uL (0-1.0); Monocytes % (A) 6 %; Neutrophils # (A) 6.7 k/uL (1.3-7.7); Neutrophils % (A) 77 %; Platelet Count 118 k/uL (150-450); RBC 3.74 m/uL (3.80-5.40); RDW 14.5 % (11.5-15.5); WBC 8.6 k/uL (3.8-10.6)
[2017-05-03 06:44] LABS: INR 1.2 (<1.2); Prothrombin Time 11.1 sec (9.0-12.0)
[2017-05-03 06:58] LABS: ALT 29 U/L (9-52); AST 38 U/L (14-36); Albumin 2.5 g/dL (3.5-5.0); Alkaline Phosphatase 73 U/L (38-126); Anion Gap 7 mmol/L; Blood Urea Nitrogen 10 mg/dL (7-17); Calcium 8.4 mg/dL (8.4-10.2); Carbon Dioxide 24 mmol/L (22-30); Chloride 102 mmol/L (98-107); Glucose 105 mg/dL (74-99); Potassium 3.7 mmol/L (3.5-5.1); Sodium 133 mmol/L (137-145); Total Bilirubin 1.3 mg/dL (0.2-1.3); Total Protein 4.7 g/dL (6.3-8.2)
[2017-05-03] MEDS: LACTATED RINGERS 1,000 ML IV SCH (07:32)
[2017-05-03] MEDS: CHOLECALCIFEROL 1,000 UNIT TAB PO SCH (07:39)
[2017-05-03] MEDS: POTASSIUM CHLORIDE ER 20 MEQ TAB.ER PO SCH (07:39)
[2017-05-03] MEDS: FAMOTIDINE 20 MG TAB PO SCH (07:40)
[2017-05-03] MEDS: DILTIAZEM CD 120 MG CAP.ER.24H PO SCH (07:40)
[2017-05-03] MEDS: B COMPLEX-VIT C-VIT E-ZINC 1 EACH TAB PO SCH (07:40)
[2017-05-03] MEDS: METOPROLOL TARTRATE 50 MG TAB PO SCH ×3 (07:40→21:48)
[2017-05-03] MEDS: HYDROcodone/APAP 7.5-325MG 1 EACH TAB PO PRN ×3 (07:55→21:48)
[2017-05-03] MEDS: FERROUS SULFATE 325 MG TAB PO SCH ×2 (09:30→21:48)
--- NOTE | 2017-05-03 11:21 | P.PN ---
Subjective Progress Note Date: 05/03/17 This is a 82-year-old female with a past medical history of paroxysmal atrial fibrillation, chronic diastolic congestive heart failure, hypertension, hyperlipidemia and pacemaker placement. Patient has a known history of arthritis or arthritis of the right hip and underwent a right total hip arthroplasty with Dr. Merchant. She tolerated surgery well. Estimated blood loss was 100 mL. She is currently sitting up at bedside chair with family at bedside. Patient's pain is controlled. She denies any chest pain or shortness breath. Denies any nausea or vomiting. Denies any bowel movement changes or urinary symptoms. Postop blood pressures she had some evidence of hypotension. We'll have nursing staff repeat blood pressure. We'll hold diuretics. And place parameters around the metoprolol and Cardizem. 05/01/2017 status post right total hip arthroplasty. Pain is Tylenol. Patient had some hypotension yesterday required an IV fluid bolus. And is currently maintained on IV fluids. This morning heart rate had been fluctuating in the 80s to the 120s. Patient was given a dose of metoprolol 25 mg by mouth 1 to help control heart rate. Continue with telemetry monitoring. Patient denies any chest pain, shortness of breath, heart palpitations, nausea vomiting, dizziness or lightheadedness, urination. No bowel movement yet. She is passing gas 05/03/2017 patient sitting up in bedside chair. Pain controlled. Remains in atrial fibrillation. Heart rate low 100s. Awaiting cardiology evaluation for medication recommendations. Patient denies any chest pain or shortness of breath. Denies any nausea or vomiting. Last bowel movement 2 days ago. Denies any burning with urination. It's pain discharge to ECF today Objective - Vital Signs Vital signs: Vital Signs Temp 98.6 F 05/03/17 07:00 Pulse 110 H 05/03/17 07:00 Resp 16 05/03/17 07:00 BP 135/59 05/03/17 07:00 Pulse Ox 95 05/03/17 07:00 Intake & Output 05/02/17 05/03/17 05/03/17 18:59 06:59 18:59 Intake Total 800 1 120 Balance 800 1 120 Intake: IV 800 Sodium Chloride 0.9% 1, 800 000 ml @ 100 mls/hr IV . Q10H [facility] Rx#:[id number] Oral 1 120 Other: Voiding Method Toilet # Voids 1 1 - Exam Head normocephalic Neck supple Lungs clear to auscultation bilaterally no wheezing or crackles Heart regular rate and rhythm S1-S2, no rub or gallop Abdomen is soft nontender nondistended positive bowel sounds no hepatosplenomegaly Extremities no edema. Neuro alert and orientated to 3 - Labs CBC & Chem 7: 05/03/17 06:21 05/03/17 06:21 Labs: Abnormal Lab Results - Last 24 Hours (Table) 05/03/17 05/03/17 05/03/17 Range/Units 06:21 06:21 06:21 RBC 3.74 L (3.80-5.40) m/uL Hgb 10.8 L (11.4-16.0) gm/dL Plt Count 118 L (150-450) k/uL INR 1.2 H (<1.2) Sodium 133 L (137-145) mmol/L Glucose 105 H (74-99) mg/dL AST 38 H (14-36) U/L Total Protein 4.7 L (6.3-8.2) g/dL Albumin 2.5 L (3.5-5.0) g/dL Assessment and Plan Assessment: 1. Osteoarthritis of the right hip status post right total hip arthroplasty anterior approach. Estimated blood loss 100 mL. Continue with current pain medications. Continue Coumadin for DVT prophylaxis 2. History of paroxysmal atrial fibrillation: Anticoagulated with Coumadin at home. INR 1.2. Continue Coumadin, patient's home dose. Continue metoprolol and Cardizem for rate control. Cardiology has been consulted for elevated heart rate. Will await their recommendations for medications at discharge 3. History of Essential hypertension: Patient has had some episodes of expected hypotension after surgery due to pain medications and anesthesia. She required IV fluid bolus and is currently on normal saline 100. Lasix and hydrochlorothiazide have been on hold. Place parameters around the metoprolol to hold for systolic blood pressure less than 110 or heart rate less than 55 and Cardizem hold for systolic blood pressure less than 115. Blood pressures have shown improvement she is able to take her Cardizem and metoprolol 4. History of pacemaker 5. History of chronic diastolic CHF. No evidence of exacerbation 6. History of ovarian cancer 7. Generalized anxiety disorder continue with her Xanax 8. Hyperlipidemia continue her pravastatin 9. Leukocytosis likely reactive after surgery. Resolved 10. Hypokalemia. Patient received potassium supplement. Now resolved 11. Expected acute blood loss anemia secondary to surgery. Hemoglobin 10.8. Patient started on iron supplement. 12. Mild hyponatremia: Sodium 133 Recommend checking CBC and BMP PT/INR on Sunday GI prophylaxis Pepcid and DVT prophylaxis Coumadin Anticipating discharge today when cleared by cardiology I performed an examination of the patient and discussed their management with the physician [employer]. I have reviewed the Physician [employer]ver Automatic's notes and agree with the documented findings and plan of care
--- NOTE | 2017-05-03 11:34 | P.DS ---
Providers Date of admission: 04/30/17 06:07 Expected date of discharge: 05/03/17 Attending physician: Ferny Merchant Consults: 04/30/17 07:27 Consult Physician Routine Consulting Provider: Amelia Cuenca Consult Reason/Comments: medical management Do you want consulting provider notified?: Yes 05/02/17 15:26 Consult Physician Urgent Consulting Provider: Robb Shaffer Consult Reason/Comments: high heart rate Do you want consulting provider notified?: Yes Primary care physician: Amelia Cuenca - Discharge Diagnosis(es) (1) Primary osteoarthritis of right hip Current Visit: Yes Status: Acute (2) S/P total hip arthroplasty Current Visit: Yes Status: Acute Hospital Course: This is a 82-year-old female with known history of degenerative arthritis of the right hip. The patient presents for evaluation. After discussion and consideration patient elects to proceed with total hip arthroplasty. The patient is seen preoperatively by Dr. Merchant and cleared for surgery. Patient is [facility] to [facility] on 04/30[facility]2017 for total hip arthroplasty. The procedures performed without complication or sequelae. The patient is doing well postoperatively. Labs and vital signs are stable on day of discharge. On day of discharge patient's hip incision is healing well. There is minimal erythema. There is no drainage noted at this time. There is minimal soft tissue swelling to the hip and thigh. Patient has full foot and ankle motion without difficulty or pain. Neurovascular status to the right lower extremity is intact. Patient is discharged to rehab in good condition.Please see med rec for accurate list of home medications. Plan - Discharge Summary Discharge Rx Participant: No New Discharge Prescriptions: New HYDROcodone/APAP 7.5-325MG [Hubbard 7.5-325] 1 - 2 tab PO Q4-6H PRN #90 tab PRN Reason: Pain Sennosides [Senokot] 1 tab PO BID #60 tablet No Action Warfarin [Coumadin] 5 mg PO MOTUWEFRSA Warfarin [Coumadin] 7.5 mg PO SUTH Cholecalciferol [Vitamin D3] 1,000 unit PO DAILY Pravastatin Sodium 40 mg PO HS Chlorthalidone 50 mg PO DAILY ALPRAZolam 0.5 mg PO BID PRN PRN Reason: Anxiety Furosemide [Lasix] 20 mg PO DAILY #60 tab Potassium 198 mg PO DAILY Metoprolol Tartrate [Lopressor] 50 mg PO BID Diltiazem HCl [Cartia Xt] 120 mg PO BID Vitamin B Complex 1 cap PO DAILY ALPRAZolam [Xanax] 0.25 mg PO HS Discharge Medication List Warfarin [Coumadin] 5 mg PO MOTUWEFRSA 08/28/13 [History] ALPRAZolam 0.5 mg PO BID PRN 05/22/14 [History] Chlorthalidone 50 mg PO DAILY 05/22/14 [History] Cholecalciferol [Vitamin D3] 1,000 unit PO DAILY 05/22/14 [History] Pravastatin Sodium 40 mg PO HS 05/22/14 [History] Warfarin [Coumadin] 7.5 mg PO SUTH 05/22/14 [History] Furosemide [Lasix] 20 mg PO DAILY #60 tab 02/01/15 [Rx] ALPRAZolam [Xanax] 0.25 mg PO HS 04/19/17 [History] Diltiazem HCl [Cartia Xt] 120 mg PO BID 04/19/17 [History] Metoprolol Tartrate [Lopressor] 50 mg PO BID 04/19/17 [History] Potassium 198 mg PO DAILY 04/19/17 [History] Vitamin B Complex 1 cap PO DAILY 04/19/17 [History] HYDROcodone/APAP 7.5-325MG [Hubbard 7.5-325] 1 - 2 tab PO Q4-6H PRN #90 tab [Rx] Sennosides [Senokot] 1 tab PO BID #60 tablet 05/03/17 [Rx] Follow up Appointment(s)/Referral(s): Ferny Merchant DO [Doctor of Osteopathic Medicine] - 05/17/17 1:00 pm (With Mimi Cooper) Patient Instructions/Handouts: Total Hip Replacement (DC) Activity/Diet/Wound Care/Special Instructions: Weightbearing as tolerated with walker Leave dressing intact. Dressing may be removed by home care nurse in 7 days, . May shower with dressing on. Follow-up with [facility] in 2 weeks, please call with any questions or concerns [phone] Discharge Disposition: TRANSFER TO SNF/ECF
[2017-05-03] MEDS ORDERED: HYDROmorphone 2 MG TAB PO PRN ×3 (13:28→13:30)
[2017-05-03] MEDS ORDERED: WARFARIN 7.5 MG TAB PO SCH (18:00)
[2017-05-03 21:48] VITALS: RESP 16
[2017-05-03] MEDS: PRAVASTATIN SODIUM 40 MG TAB PO SCH (21:49)
[2017-05-03] MEDS: ALPRAZolam 0.25 MG TAB PO SCH (21:52)
[2017-05-04] MEDS: HYDROcodone/APAP 7.5-325MG 1 EACH TAB PO PRN ×2 (06:16→15:56)
[2017-05-04 07:38] LABS: Basophils % (A) 1 %; Eosinophils # (A) 0.2 k/uL (0-0.7); Eosinophils % (A) 2 %; HCT 34.4 % (34.0-46.0); HGB 11.2 gm/dL (11.4-16.0); Lymphocytes # (A) 1.1 k/uL (1.0-4.8); Lymphocytes % (A) 12 %; MCH 29.4 pg (25.0-35.0); MCHC 32.7 g/dL (31.0-37.0); MCV 89.8 fL (80.0-100.0); Mean Platelet Volume 9.2; Monocytes # (A) 0.5 k/uL (0-1.0); Monocytes % (A) 6 %; Neutrophils % (A) 78 %; Platelet Count 149 k/uL (150-450); RBC 3.82 m/uL (3.80-5.40)
[2017-05-04 07:54] LABS: INR 1.2 (<1.2); Prothrombin Time 11.5 sec (9.0-12.0)
[2017-05-04 07:55] LABS: ALT 27 U/L (9-52); AST 50 U/L (14-36); Albumin 2.9 g/dL (3.5-5.0); Alkaline Phosphatase 85 U/L (38-126); Anion Gap 10 mmol/L; Blood Urea Nitrogen 15 mg/dL (7-17); Calcium 8.9 mg/dL (8.4-10.2); Carbon Dioxide 26 mmol/L (22-30); Chloride 99 mmol/L (98-107); Glucose 115 mg/dL (74-99); Potassium 4.2 mmol/L (3.5-5.1); Sodium 135 mmol/L (137-145); Total Bilirubin 1.2 mg/dL (0.2-1.3); Total Protein 5.3 g/dL (6.3-8.2)
[2017-05-04] MEDS: METOPROLOL TARTRATE 50 MG TAB PO SCH ×2 (08:06→15:23)
[2017-05-04] MEDS: POTASSIUM CHLORIDE ER 20 MEQ TAB.ER PO SCH (08:07)
[2017-05-04] MEDS: CHOLECALCIFEROL 1,000 UNIT TAB PO SCH (08:07)
[2017-05-04] MEDS: FAMOTIDINE 20 MG TAB PO SCH (08:07)
[2017-05-04] MEDS: FERROUS SULFATE 325 MG TAB PO SCH (08:07)
--- NOTE | 2017-05-04 08:36 | P.CRDCN ---
History of Present Illness Consult date: 05/03/17 History of present illness: This is a pleasant 82-year-old female patient who sees Dr. Shaffer in the office as an outpatient with a past medical history significant for chronic atrial fibrillation on anticoagulation, hypertension, and dyslipidemia, and also permanent pacemaker, was admitted to the hospital and underwent right hip arthroplasty from an anterior approach. The surgery went well and was uneventful. We requested to see the patient because she was tachycardic and she was in A. fib with a heart rate between 110 120 beats per minutes. Clinically, the patient is completely asymptomatic. She was sitting in her chair comfortably, denies having any chest pain or discomfort, difficulty breathing, feeling of heart racing or fluttering, dizziness or lightheadedness. The patient was receiving for the atrial fibrillation Cardizem at 120 mg by mouth daily and also she was on metoprolol 50 mg by mouth twice a day. Beside that she was on Coumadin for anticoagulation. She underwent a blood work indicates normal hemoglobin and also normal kidney function and electrolytes. She did not seems to be dehydrated when I examine her. I will increase the dose of Cardizem to 180 mg by mouth daily and increase the dose of metoprolol to 50 mg by mouth 3 times a day to achieve better heart rate control. I requested the patient to stay one more day in the hospital and follow-up with her in the morning. If the heart rate is better in the morning she might be able to be discharged home. Past Medical History Past Medical History: Atrial Fibrillation, Heart Failure, Hyperlipidemia, Hypertension Additional Past Medical History / Comment(s): ovarian CA 1979 History of Any Multi-Drug Resistant Organisms: None Reported Past Surgical History: Appendectomy, Cardiac Ablation, Hernia Repair, Hysterectomy, Joint Replacement, Pacemaker Additional Past Surgical History / Comment(s): ovarian surgery, hemmorhoid surgery, (meditronic) pacemaker placed in 05/2014,cardiac ablation, right hip replacement Past Anesthesia/Blood Transfusion Reactions: No Reported Reaction Additional Past Anesthesia/Blood Transfusion Reaction / Comment(s): unknown family hx.no problems with prior blood transfusion > 40 yrs ago Type of Cardiac Device: Permanent Pacemaker Device Placement Date:: 05/2014 Past Psychological History: Anxiety Smoking Status: Former smoker Past Alcohol Use History: None Reported Additional Past Alcohol Use History / Comment(s): quit smoking 1985,started smoking at age 17,1ppd Past Drug Use History: None Reported - Past Family History Mother Family Medical History: Cancer Father History Unknown: Yes Additional Family Medical History / Comment(s): very early Medications and Allergies Home Medications Medication Instructions Recorded Confirmed Type Warfarin [Coumadin] 5 mg PO [id number] 08/28/13 04/30/17 History ALPRAZolam 0.5 mg PO BID PRN 05/22/14 04/30/17 History Chlorthalidone 50 mg PO DAILY 05/22/14 04/30/17 History Cholecalciferol [Vitamin D3] 1,000 unit PO DAILY 05/22/14 04/30/17 History Pravastatin Sodium 40 mg PO HS 05/22/14 04/30/17 History Warfarin [Coumadin] 7.5 mg PO SUTH 05/22/14 04/30/17 History Furosemide [Lasix] 20 mg PO DAILY #60 tab 02/01/15 04/30/17 Rx ALPRAZolam [Xanax] 0.25 mg PO HS 04/19/17 04/30/17 History Diltiazem HCl [Cartia Xt] 120 mg PO BID 04/19/17 04/30/17 History Metoprolol Tartrate [Lopressor] 50 mg PO BID 04/19/17 04/30/17 History Potassium 198 mg PO DAILY 04/19/17 04/30/17 History Vitamin B Complex 1 cap PO DAILY 04/19/17 04/30/17 History HYDROcodone/APAP 7.5-325MG [Lenox 1 - 2 tab PO Q4-6H PRN #90 tab 05/03/17 Rx 7.5-325] Sennosides [Senokot] 1 tab PO BID #60 tablet 05/03/17 Rx Allergies Allergy/AdvReac Type Severity Reaction Status Date / Time Nitroimidazoles Allergy Unknown Verified 04/30/17 11:22 Tetracyclines Allergy Unknown Verified 04/30/17 11:22 niacin AdvReac Unknown Verified 04/30/17 11:22 Niacin Preparations AdvReac Unknown Verified 04/30/17 11:22 pantoprazole sodium AdvReac Nausea & Verified 04/30/17 11:22 [From Protonix] Vomiting Penicillins AdvReac COULDN'T Verified 04/30/17 11:22 WALK NEXT DAY AFTER TAKING Physical Exam Vitals: Vital Signs Temp Pulse Resp BP BP Pulse Ox 05/04/17 07:00 97.5 F L 98 16 113/74 95 05/04/17 02:15 97.9 F 76 99/64 94 L 05/03/17 21:40 98.3 F 94 16 131/72 92 L 05/03/17 15:30 104 H 05/03/17 14:53 98.6 F 104 H 14 114/75 97 Intake and Output 05/03/17 05/04/17 05/04/17 22:59 06:59 14:59 Intake Total 100 0 Output Total 300 Balance -200 0 Intake: Intake, IV Titration 0 Amount Sodium Chloride 0.9% 1, 0 000 ml @ 100 mls/hr IV . Q10H [facility] Rx#:[id number] Oral 100 Output: Urine 300 Other: Voiding Method Toilet Toilet - Constitutional General appearance: no acute distress - Respiratory Respiratory: bilateral: CTA - Cardiovascular Rhythm: irregularly irregular Heart sounds: normal: S1, S2 Results 05/04/17 07:00 05/04/17 07:00 Cardiac Enzymes 05/04/17 Range/Units 07:00 AST 50 H (14-36) U/L Coagulation 05/04/17 Range/Units 07:00 PT 11.5 (9.0-12.0) sec CBC 05/04/17 Range/Units 07:00 WBC 9.0 (3.8-10.6) k/uL RBC 3.82 (3.80-5.40) m/uL Hgb 11.2 L (11.4-16.0) gm/dL Hct 34.4 (34.0-46.0) % Plt Count 149 L (150-450) k/uL Comprehensive Metabolic Panel 05/04/17 Range/Units 07:00 Sodium 135 L (137-145) mmol/L Potassium 4.2 (3.5-5.1) mmol/L Chloride 99 (98-107) mmol/L Carbon Dioxide 26 (22-30) mmol/L BUN 15 (7-17) mg/dL Creatinine 0.75 (0.52-1.04) mg/dL Glucose 115 H (74-99) mg/dL Calcium 8.9 (8.4-10.2) mg/dL AST 50 H (14-36) U/L ALT 27 (9-52) U/L Alkaline Phosphatase 85 (38-126) U/L Total Protein 5.3 L (6.3-8.2) g/dL Albumin 2.9 L (3.5-5.0) g/dL Current Medications Generic Name Dose Route Start Last Admin Trade Name Freq PRN Reason Stop Dose Admin Hydrocodone Bitart/Acetaminophen 1 each 05/02/17 09:01 05/04/17 06:16 Lenox 7.5-325 PO 1 each Q6H PRN Administration Pain Scale 1 to 5 Hydrocodone Bitart/Acetaminophen 2 each 05/02/17 09:01 Lenox 7.5-325 PO Q6H PRN Pain Scale 6 to 10 Alprazolam 0.5 mg 04/30/17 14:44 Xanax PO BID PRN Anxiety Alprazolam 0.25 mg 04/30/17 21:00 05/03/17 21:52 Xanax PO 0.25 mg HS [facility] Administration Cholecalciferol 1,000 unit 05/01/17 09:00 05/04/17 08:07 Vitamin D3 PO 1,000 unit DAILY [facility] Administration Diazepam 2.5 mg 04/30/17 07:27 Valium PO Q8HR PRN Mild Spasms Diazepam 5 mg 04/30/17 07:27 Valium PO Q8HR PRN Moderate to Severe Spasms Diltiazem HCl 180 mg 05/04/17 09:00 05/04/17 08:06 Cardizem Cd PO 180 mg DAILY [facility] Administration Famotidine 20 mg 05/01/17 09:00 05/04/17 08:07 Pepcid PO 20 mg DAILY [facility] Administration Ferrous Sulfate 325 mg 05/03/17 09:00 05/04/17 08:07 Feosol PO 325 mg BID [facility] Administration Hydromorphone HCl 0.5 mg 05/03/17 13:28 Dilaudid PO Q3HR PRN Pain Scale 1 to 3 Hydromorphone HCl 1 mg 05/03/17 13:29 Dilaudid PO Q3HR PRN Pain Scale 4 to 6 Hydromorphone HCl 2 mg 05/03/17 13:30 Dilaudid PO Q3HR PRN Pain Scale 7 to 10 Hydroxyzine Pamoate 25 mg 04/30/17 07:27 Vistaril PO Q4HR PRN Nausea, Anxiety, Pain Control Magnesium Hydroxide 2,400 mg 04/30/17 07:27 Milk Of Magnesia PO DAILY PRN Constipation Metoprolol Tartrate 50 mg 05/03/17 16:00 05/04/17 08:06 Lopressor PO 50 mg TID [facility] Administration Naloxone HCl 0.2 mg 04/30/17 07:27 Narcan IV Q2M PRN Opioid Reversal Potassium Chloride 20 meq 05/01/17 09:00 05/04/17 08:07 K-Dur 20 PO 20 meq DAILY [facility] Administration Pravastatin Sodium 40 mg 04/30/17 21:00 05/03/17 21:49 Pravachol PO 40 mg HS [facility] Administration Vitamin B Complex/Vit C/Vit E/Zinc 1 each 05/01/17 12:00 05/03/17 07:40 Z-Bec PO 1 each DAILY@1200 [facility] Administration Warfarin Sodium 5 mg 05/01/17 18:00 05/02/17 17:12 Coumadin PO 5 mg MoTuWeFrSa@1800 [facility] Administration Warfarin Sodium 7.5 mg 05/03/17 18:00 05/03/17 16:38 Coumadin PO 7.5 mg SuTh@1800 [facility] Administration Intake and Output 05/03/17 05/04/17 05/04/17 22:59 06:59 14:59 Intake Total 100 0 Output Total 300 Balance -200 0 Intake: Intake, IV Titration 0 Amount Sodium Chloride 0.9% 1, 0 000 ml @ 100 mls/hr IV . Q10H [facility] Rx#:[id number] Oral 100 Output: Urine 300 Other: Voiding Method Toilet Toilet 05/04/17 07:00 05/04/17 07:00 Assessment and Plan Assessment: Assessment #1 status post right hip arthroplasty #2 atrial fibrillation with uncontrolled heart rate #3 hypertension #4 dyslipidemia #5 status post permanent pacemaker Plan #1 increase the dose of Cardizem 180 mg by mouth daily #2 increase the dose of metoprolol to 50 mg by mouth 3 times a day #3 keep the patient for additional 24 hours #4 follow-up with the patient. Thank you for allowing us participate in her care and we'll continue following up with her.
[2017-05-04] MEDS ORDERED: DILTIAZEM CD 180 MG CAP.ER.24H PO SCH (09:00)
[2017-05-04] MEDS ORDERED: DIGOXIN 250 MCG/ML 2 ML AMP IVP ONE (10:00)
--- NOTE | 2017-05-04 11:22 | P.PN ---
Subjective Progress Note Date: 05/04/17 Mrs. Shelley is being seen today in follow-up from initial consultation for tachycardia. She has a history of atrial fibrillation on mcc anticoagulation with coumadin and follows with Dr. Shaffer. She also has a permanent pacemaker in place, hypertension, chronic diastolic heart failure and dyslipidemia. She is post-operative for right hip arthroplasty. She continues to be asymptomatic with heart rate this morning 120-130. She denies chest pain, shortness of breath, dizziness, palpitations, nausea or vomiting. Yesterday metoprolol was increased to 50mg TID and cardizem changed to 180mg daily. Review of the records reveals that her cardizem had been held frequently since admission for hypotension post-operatively. This may be the reason for uncontrolled heart rates. Laboratory data reviewed, hemoglobin 11.2, platelets 149, INR 1.2, potassium 4.2 , creatinine 0.75. Objective - Vital Signs Vital signs: Vital Signs Temp 97.5 F L 05/04/17 07:00 Pulse 114 H 05/04/17 10:12 Resp 16 05/04/17 07:00 BP 112/66 05/04/17 10:12 Pulse Ox 95 05/04/17 07:00 Intake & Output 05/03/17 05/04/17 05/04/17 18:59 06:59 18:59 Intake Total 1280 100 180 Output Total 300 Balance 1280 -200 180 Intake: IV 800 Sodium Chloride 0.9% 1, 800 000 ml @ 100 mls/hr IV . Q10H [facility] Rx#:[id number] Intake, IV Titration 0 Amount Sodium Chloride 0.9% 1, 0 000 ml @ 100 mls/hr IV . Q10H [facility] Rx#:[id number] Oral 480 100 180 Output: Urine 300 Other: Voiding Method Toilet Toilet # Voids 2 - Exam Blood pressure 113/74 heart rate 120 to 130 on telemetry afebrile GENERAL: Well-appearing, well-nourished and in no acute distress. NECK: Supple without JVD or thyromegaly. LUNGS: Breath sounds clear to auscultation bilaterally. Respiration equal and unlabored. No wheezes, rales or rhonchi. HEART: Irregular rate and rhythm without murmurs, rubs or gallops. S1 and S2 heard. EXTREMITIES: Normal range of motion, no edema. No clubbing or cyanosis. Peripheral pulses intact and strong. - Labs CBC & Chem 7: 05/04/17 07:00 05/04/17 07:00 Labs: Abnormal Lab Results - Last 24 Hours (Table) 05/04/17 05/04/17 05/04/17 Range/Units 07:00 07:00 07:00 Hgb 11.2 L (11.4-16.0) gm/dL Plt Count 149 L (150-450) k/uL INR 1.2 H (<1.2) Sodium 135 L (137-145) mmol/L Glucose 115 H (74-99) mg/dL AST 50 H (14-36) U/L Total Protein 5.3 L (6.3-8.2) g/dL Albumin 2.9 L (3.5-5.0) g/dL Assessment and Plan Assessment: ASSESSMENT 1. Atrial fibrillation with rapid ventricular response on manager terminal anticoagulation with coumadin 2. Post-operative right hip arthroplasty 3. Hypertension 4. Dyslipidemia 5. History of permanent pacemaker implantation 6. Sub-therapeutic INR PLAN Add digoxin to daily regimen to attempt better control of her heart rate. Give a loading dose IV. Continue to monitor heart rate and blood pressure. Increase activity as tolerated with physical therapy. Continue with coumadin, metoprolol, diltiazem and pravastatin as was previously ordered. Follow-up with Dr. Shaffer in 3-4 weeks. Nurse Practitioner note has been reviewed, I agree with a documented findings and plan of care. Patient was seen and examined.
--- NOTE | 2017-05-04 12:13 | P.PN ---
Subjective Progress Note Date: 05/04/17 This is a 82-year-old female with a past medical history of paroxysmal atrial fibrillation, chronic diastolic congestive heart failure, hypertension, hyperlipidemia and pacemaker placement. Patient has a known history of arthritis or arthritis of the right hip and underwent a right total hip arthroplasty with Dr. Merchant. She tolerated surgery well. Estimated blood loss was 100 mL. She is currently sitting up at bedside chair with family at bedside. Patient's pain is controlled. She denies any chest pain or shortness breath. Denies any nausea or vomiting. Denies any bowel movement changes or urinary symptoms. Postop blood pressures she had some evidence of hypotension. We'll have nursing staff repeat blood pressure. We'll hold diuretics. And place parameters around the metoprolol and Cardizem. 05/01/2017 status post right total hip arthroplasty. Pain is Tylenol. Patient had some hypotension yesterday required an IV fluid bolus. And is currently maintained on IV fluids. This morning heart rate had been fluctuating in the 80s to the 120s. Patient was given a dose of metoprolol 25 mg by mouth 1 to help control heart rate. Continue with telemetry monitoring. Patient denies any chest pain, shortness of breath, heart palpitations, nausea vomiting, dizziness or lightheadedness, urination. No bowel movement yet. She is passing gas 05/03/2017 patient sitting up in bedside chair. Pain controlled. Remains in atrial fibrillation. Heart rate low 100s. Awaiting cardiology evaluation for medication recommendations. Patient denies any chest pain or shortness of breath. Denies any nausea or vomiting. Last bowel movement 2 days ago. Denies any burning with urination. 05/04/2017 patient was seen evaluated by cardiology. They gave her a loading dose of digoxin. And started oral digoxin to help control her heart rate. Heart rate has shown improvement. Case discussed with cardiology. They have resumed her diuretics. They have increased her Cardizem 280 mg daily. Metoprolol was increased to 50 mg 3 times a day and digoxin was added at 125 g daily. Patient has been cleared by orthopedics. She has no new complaints. Objective - Vital Signs Vital signs: Vital Signs Temp 97.5 F L 05/04/17 07:00 Pulse 114 H 05/04/17 10:12 Resp 16 05/04/17 07:00 BP 112/66 05/04/17 10:12 Pulse Ox 95 05/04/17 07:00 Intake & Output 05/03/17 05/04/17 05/04/17 18:59 06:59 18:59 Intake Total 1280 100 180 Output Total 300 Balance 1280 -200 180 Intake: IV 800 Sodium Chloride 0.9% 1, 800 000 ml @ 100 mls/hr IV . Q10H [facility] Rx#:[id number] Intake, IV Titration 0 Amount Sodium Chloride 0.9% 1, 0 000 ml @ 100 mls/hr IV . Q10H [facility] Rx#:[id number] Oral 480 100 180 Output: Urine 300 Other: Voiding Method Toilet Toilet # Voids 2 - Exam Head normocephalic Neck supple Lungs clear to auscultation bilaterally no wheezing or crackles Heart irregular Abdomen is soft nontender nondistended positive bowel sounds no hepatosplenomegaly Extremities no edema. Neuro alert and orientated to 3 - Labs CBC & Chem 7: 05/04/17 07:00 05/04/17 07:00 Labs: Abnormal Lab Results - Last 24 Hours (Table) 05/04/17 05/04/17 05/04/17 Range/Units 07:00 07:00 07:00 Hgb 11.2 L (11.4-16.0) gm/dL Plt Count 149 L (150-450) k/uL INR 1.2 H (<1.2) Sodium 135 L (137-145) mmol/L Glucose 115 H (74-99) mg/dL AST 50 H (14-36) U/L Total Protein 5.3 L (6.3-8.2) g/dL Albumin 2.9 L (3.5-5.0) g/dL Assessment and Plan Assessment: 1. Osteoarthritis of the right hip status post right total hip arthroplasty anterior approach. Estimated blood loss 100 mL. Continue with current pain medications. Continue Coumadin for DVT prophylaxis 2. History of paroxysmal atrial fibrillation: Anticoagulated with Coumadin at home. INR 1.2. Continue Coumadin, patient's home dose. Cardiology has adjusted medications as stated above. Digoxin 125 mg by mouth daily, Cardizem 180 mg daily and metoprolol 50 mg 3 times a day 3. History of Essential hypertension: Patient has had some episodes of expected hypotension after surgery due to pain medications and anesthesia. Blood pressures have improved after IV fluids 4. History of pacemaker 5. History of chronic diastolic CHF. No evidence of exacerbation 6. History of ovarian cancer 7. Generalized anxiety disorder continue with her Xanax 8. Hyperlipidemia continue her pravastatin 9. Leukocytosis likely reactive after surgery. Resolved 10. Hypokalemia. Patient received potassium supplement. Now resolved 11. Expected acute blood loss anemia secondary to surgery. Hemoglobin at discharge 11.2. Continue iron supplement 12. Mild hyponatremia: Improving sodium 135 13. Mildly elevated AST at 50. Patient reports no abdominal pain. We'll repeat LFT levels in 1 week. Also will hold patient's statin for now. Will have patient follow-up labs outpatient setting to discuss when to repeat restart the statin Case has been discussed with cardiology. They recommend that she continues her home dose of Coumadin. It is noted that her INR subtherapeutic at 1.2. Recommend repeating PT/INR in 1 week. Also recommend checking CBC and CMP in 1 week GI prophylaxis Pepcid and DVT prophylaxis Coumadin Patient is medically stable for discharge I performed an examination of the patient and discussed their management with the physician Brick Loader. I have reviewed the Physician Brick Loader's notes and agree with the documented findings and plan of care
[2017-05-04] MEDS: B COMPLEX-VIT C-VIT E-ZINC 1 EACH TAB PO SCH (13:13)
[2017-05-04 14:50] VITALS: BP 120/68; PULSE 78; TEMP 98.5
[2017-05-04 15:13] LABS: Amorphous Sediment,Urine Rare /hpf; Appearance,Urine Clear (Clear); Bilirubin,Urine Negative (Negative); Blood,Urine Negative (Negative); Color,Urine Yellow; Glucose,Urine (UA) Negative (Negative); Ketones,Urine Negative (Negative); Leukocyte Esterase,Urine Trace (Negative); Mucus,Urine Rare /hpf; Nitrite,Urine Negative (Negative); PH, Urine 6.5 (5.0-8.0); Protein,Urine Trace (Negative); RBC,Urine 1 /hpf (0-5); Specific Gravity,Urine 1.015 (1.001-1.035); Squamous Epithelial Cell,Urine 2 /hpf (0-4); WBC,Urine 17 /hpf (0-5)
[2017-05-05] MEDS ORDERED: DIGOXIN 125 MCG TAB PO SCH (09:00)
== END 2017-05-04 16:34 | DRG 470 ==
LOC: 2ORMAIN 06:07 → 3SUR 09:13
PROVIDERS: ADMIT Orthopaedic Surgery; ATTEND Orthopaedic Surgery
PROC: 0SR906A Replacement of Right Hip Joint with Oxidized Zirconium on Polyethylene Synthetic Substitute, Uncemented, Open Approach (ICD-10-PCS; principal; 2017-04-30 07:30)
DX: M16.11 Unilateral primary osteoarthritis, right hip (principal); I11.0 Hypertensive heart disease with heart failure; I48.0 Paroxysmal atrial fibrillation; I95.9 Hypotension, unspecified; E87.1 Hypo-osmolality and hyponatremia; I50.32 Chronic diastolic (congestive) heart failure; I48.2 Chronic atrial fibrillation; D62 Acute posthemorrhagic anemia; D72.829 Elevated white blood cell count, unspecified; E78.5 Hyperlipidemia, unspecified; E87.6 Hypokalemia; F41.1 Generalized anxiety disorder; K59.00 Constipation, unspecified; R79.1 Abnormal coagulation profile; R00.0 Tachycardia, unspecified
CPT/HCPCS: 36415; 71045; 73501; 80053; 81001; 81003; 85025; 85027; 85610; 85730; 86850; 86891; 86900; 86901; 88300

== ENCOUNTER 2017-05-17 21:58 | Emergency (ER) | payer MEDICARE, BC ==
[2017-05-17] MEDS ORDERED: ONDANSETRON 4 MG/2 ML VIAL IVP STA (22:16)
[2017-05-17] MEDS ORDERED: SODIUM CHLORIDE 0.9% 1,000 ML IV STA (22:16)
--- NOTE | 2017-05-17 22:20 | ED ---
Nausea/Vomiting/Diarrhea HPI - General Chief complaint: Nausea/Vomiting/Diarrhea Stated complaint: NVD Time Seen by Provider: 05/17/17 22:08 Source: EMS Mode of arrival: EMS Limitations: no limitations - History of Present Illness Initial comments: 82-year-old female patient currently residing at [facility] nursing [facility] after having a hip replacement and of April presents to the emergency department today for evaluation of vomiting and diarrhea 2 days. Patient states that she has had multiple episodes of watery diarrhea today. She states that she has been vomiting and unable to keep down any food or fluids. She states even the thought of food makes her very nauseous. She is reporting mild upper abdominal pain. She denies any hematemesis, hematochezia, or melena. Denies any fevers, but states she has been chilled. She states that she feels weak and ill. She denies any recent antibiotic use. Reports multiple abdominal surgeries in the past. Patient denies any recent rash, shortness breath, chest pain, vomiting, diarrhea, back pain, numbness, tingling, dizziness, weakness, hematuria, dysuria , urinary urgency, urinary frequency, headache, visual changes, or any other complaints. - Related Data Home Medications Medication Instructions Recorded Confirmed Warfarin [Coumadin] 5 mg PO MOTUWEFRSA 08/28/13 05/17/17 Chlorthalidone 50 mg PO DAILY@0805/22/14 05/17/17 Cholecalciferol [Vitamin D3] 1,000 unit PO DAILY@17005/22/14 05/17/17 Warfarin [Coumadin] 7.5 mg PO SUTH 05/22/14 05/17/17 Potassium 198 mg PO DAILY@17004/19/17 05/17/17 Vitamin B Complex 1 cap PO DAILY@1700 04/19/17 05/17/17 ALPRAZolam [Xanax] 0.25 mg PO HS@2100 05/17/17 05/17/17 Acetaminophen Tab [Tylenol Tab] 650 mg PO Q4H 05/17/17 05/17/17 Bisacodyl [Dulcolax] 10 mg RECTAL HS PRN 05/17/17 05/17/17 Digoxin [Lanoxin] 125 mcg PO DAILY@0600 05/17/17 05/17/17 Diltiazem Cd [Cardizem CD] 180 mg PO DAILY@0800 02/15/18 02/15/18 Furosemide [Lasix] 20 mg PO DAILY@0600 05/17/17 05/17/17 HYDROcodone/APAP 7.5-325MG [[place] 1 - 2 tab PO Q4H PRN 05/17/17 05/17/17 7.5-325] Magnesium Hydroxide [Milk of 2,400 mg PO ONCE PRN 05/17/17 05/17/17 Magnesia] Metoprolol Tartrate [Lopressor] 50 mg PO TID@0600,1400,2100 05/17/17 05/17/17 Na Phos,M-B/Na Phos,Di-Ba [Fleet 133 ml RECTAL ONCE PRN 05/17/17 05/17/17 Adult] Ondansetron [Zofran] 4 mg PO TID PRN 05/17/17 05/17/17 Previous Rx's Medication Instructions Recorded Sennosides [Senokot] 1 tab PO BID #60 tablet 05/03/17 ALPRAZolam [Xanax] 0.5 mg PO BID PRN #30 tab 05/04/17 Metoclopramide [Reglan] 10 mg PO Q8H #10 tab 05/18/17 Allergies Allergy/AdvReac Type Severity Reaction Status Date / Time Nitroimidazoles Allergy Unknown Verified 05/17/17 22:06 Tetracyclines Allergy Unknown Verified 05/17/17 22:06 niacin AdvReac Unknown Verified 05/17/17 22:05 Niacin Preparations AdvReac Unknown Verified 05/17/17 22:06 pantoprazole sodium AdvReac Nausea & Verified 05/17/17 22:06 [From Protonix] Vomiting Penicillins AdvReac COULDN'T Verified 05/17/17 22:06 WALK NEXT DAY AFTER TAKING Review of Systems ROS Statement: Those systems with pertinent positive or pertinent negative responses have been documented in the HPI. ROS Other: All systems not noted in ROS Statement are negative. Past Medical History Past Medical History: Atrial Fibrillation, Heart Failure, Hyperlipidemia, Hypertension Additional Past Medical History / Comment(s): ovarian CA 1980 History of Any Multi-Drug Resistant Organisms: None Reported Past Surgical History: Appendectomy, Cardiac Ablation, Hernia Repair, Hysterectomy, Joint Replacement, Pacemaker Additional Past Surgical History / Comment(s): ovarian surgery, hemmorhoid surgery, (meditronic) pacemaker placed in 05/2014,cardiac ablation, right hip replacement Past Anesthesia/Blood Transfusion Reactions: No Reported Reaction Additional Past Anesthesia/Blood Transfusion Reaction / Comment(s): unknown family hx.no problems with prior blood transfusion > 40 yrs ago Type of Cardiac Device: Permanent Pacemaker Device Placement Date:: 05/2014 Past Psychological History: Anxiety Smoking Status: Former smoker Past Alcohol Use History: None Reported Past Drug Use History: None Reported - Past Family History Mother Family Medical History: Cancer Father History Unknown: Yes Additional Family Medical History / Comment(s): very early General Exam Limitations: no limitations General appearance: alert, in no apparent distress, other (Physical well- developed, well-nourished elderly female patient in no acute distress. Vital signs upon presentation shows temperature 98.1F, pulse 92, respirations 16, blood pressure 153/68, pulse ox 99% on room air.) ENT exam: Present: normal exam, normal oropharynx, mucous membranes moist Respiratory exam: Present: normal lung sounds bilaterally. Absent: respiratory distress, wheezes, rales, rhonchi, stridor Cardiovascular Exam: Present: regular rate, irregular rhythm, normal heart sounds. Absent: systolic murmur, diastolic murmur, rubs, gallop, clicks GI/Abdominal exam: Present: soft, normal bowel sounds. Absent: distended, tenderness, guarding, rebound, rigid Neurological exam: Present: alert, oriented X3, CN II-XII intact Psychiatric exam: Present: normal affect, normal mood Skin exam: Present: warm, dry, intact, normal color. Absent: rash Course Vital Signs 05/17/17 05/17/17 05/18/17 21:59 23:18 00:15 Temperature 98.1 F 98 F Pulse Rate 92 88 84 Respiratory 16 16 18 Rate Blood Pressure 153/68 137/65 141/63 O2 Sat by Pulse 99 98 97 Oximetry Medical Decision Making - Medical Decision Making 82-year-old female patient presented to the emergency department today for evaluation of vomiting and diarrhea 2 days. Physical examination was unremarkable. Abdomen was soft and nontender. Labs reviewed and did reveal a elevated white blood cell count at 10.8, platelet count was 505, sodium 136, potassium 3.3, chloride 94. Alk phos is 151. Patient did receive 1500 of IV fluids here. She received Zofran, with continued have some mild nausea so she did get Reglan. She did feel better after Reglan. She did tolerate ice chips without any further vomiting. We'll discharge her back to [facility] at this time. She is given a prescription for Reglan. She is instructed to follow-up with her primary care physician for recheck in 1-2 days patient is instructed to return here immediately for any new, worsening, or concerning symptoms. She verbalizes understanding and agrees with this plan. - Lab Data Result diagrams: 05/17/17 22:35 05/17/17 22:35 Lab Results 05/17/17 05/17/17 05/17/17 Range/Units 22:35 22:35 22:35 WBC 10.8 H (3.8-10.6) k/uL RBC 4.41 (3.80-5.40) m/uL Hgb 12.4 (11.4-16.0) gm/dL Hct 37.6 (34.0-46.0) % MCV 85.2 (80.0-100.0) fL MCH 28.2 (25.0-35.0) pg MCHC 33.1 (31.0-37.0) g/dL RDW 13.6 (11.5-15.5) % Plt Count 505 H D (150-450) k/uL Neutrophils % 92 % Lymphocytes % 4 % Monocytes % 3 % Eosinophils % 0 % Basophils % 0 % Neutrophils # 9.9 H (1.3-7.7) k/uL Lymphocytes # 0.5 L (1.0-4.8) k/uL Monocytes # 0.3 (0-1.0) k/uL Eosinophils # 0.0 (0-0.7) k/uL Basophils # 0.0 (0-0.2) k/uL Sodium 136 L (137-145) mmol/L Potassium 3.3 L (3.5-5.1) mmol/L Chloride 94 L (98-107) mmol/L Carbon Dioxide 29 (22-30) mmol/L Anion Gap 13 mmol/L BUN 17 (7-17) mg/dL Creatinine 0.83 (0.52-1.04) mg/dL Est GFR (MDRD) Af Amer >60 (>60 ml/min/1.73 sqM) Est GFR (MDRD) Non-Af >60 (>60 ml/min/1.73 sqM) Glucose 145 H (74-99) mg/dL Calcium 9.8 (8.4-10.2) mg/dL Total Bilirubin 1.0 (0.2-1.3) mg/dL AST 34 (14-36) U/L ALT 38 (9-52) U/L Alkaline Phosphatase 151 H (38-126) U/L Total Creatine Kinase 65 (30-135) U/L CK-MB (CK-2) 0.9 (0.0-2.4) ng/mL CK-MB (CK-2) Rel Index 1.4 Troponin I <0.012 (0.000-0.034) ng/mL Total Protein 6.3 (6.3-8.2) g/dL Albumin 3.7 (3.5-5.0) g/dL Amylase 48 (30-110) U/L Lipase 45 (23-300) U/L Urine Color Urine Appearance (Clear) Urine pH (5.0-8.0) Ur Specific [place] (1.001-1.035) Urine Protein (Negative) Urine Glucose (UA) (Negative) Urine Ketones (Negative) Urine Blood (Negative) Urine Nitrite (Negative) Urine Bilirubin (Negative) Urine Urobilinogen (<2.0) mg/dL Ur Leukocyte Esterase (Negative) 05/18/17 Range/Units 00:00 WBC (3.8-10.6) k/uL RBC (3.80-5.40) m/uL Hgb (11.4-16.0) gm/dL Hct (34.0-46.0) % MCV (80.0-100.0) fL MCH (25.0-35.0) pg MCHC (31.0-37.0) g/dL RDW (11.5-15.5) % Plt Count (150-450) k/uL Neutrophils % % Lymphocytes % % Monocytes % % Eosinophils % % Basophils % % Neutrophils # (1.3-7.7) k/uL Lymphocytes # (1.0-4.8) k/uL Monocytes # (0-1.0) k/uL Eosinophils # (0-0.7) k/uL Basophils # (0-0.2) k/uL Sodium (137-145) mmol/L Potassium (3.5-5.1) mmol/L Chloride (98-107) mmol/L Carbon Dioxide (22-30) mmol/L Anion Gap mmol/L BUN (7-17) mg/dL Creatinine (0.52-1.04) mg/dL Est GFR (MDRD) Af Amer (>60 ml/min/1.73 sqM) Est GFR (MDRD) Non-Af (>60 ml/min/1.73 sqM) Glucose (74-99) mg/dL Calcium (8.4-10.2) mg/dL Total Bilirubin (0.2-1.3) mg/dL AST (14-36) U/L ALT (9-52) U/L Alkaline Phosphatase (38-126) U/L Total Creatine Kinase (30-135) U/L CK-MB (CK-2) (0.0-2.4) ng/mL CK-MB (CK-2) Rel Index Troponin I (0.000-0.034) ng/mL Total Protein (6.3-8.2) g/dL Albumin (3.5-5.0) g/dL Amylase (30-110) U/L Lipase (23-300) U/L Urine Color Yellow Urine Appearance Clear (Clear) Urine pH 6.0 (5.0-8.0) Ur Specific [place] 1.014 (1.001-1.035) Urine Protein Trace H (Negative) Urine Glucose (UA) Negative (Negative) Urine Ketones 2+ H (Negative) Urine Blood Negative (Negative) Urine Nitrite Negative (Negative) Urine Bilirubin Negative (Negative) Urine Urobilinogen <2.0 (<2.0) mg/dL Ur Leukocyte Esterase Negative (Negative) - EKG Data -: EKG Interpreted by Me EKG Comments: EKG obtained at 2300 shows a ventricular rate of 89, QRS duration 82, QT 340, QTC 413. Significant artifact does limit the interpretation. There does appear to be some T-wave inversion with possible ST depression in V3 and lead 3. I did review an EKG that was obtained 31 January 2015 which shows some similar changes however we did add on cardiac labs at this point for further evaluation. - Radiology Data Radiology results: report reviewed, image reviewed Two-view x-ray of the abdomen shows no sign of intestinal obstruction or pneumoperitoneum. Fecal pattern is normal. There is a right hip prosthesis. There are no pathologic calcifications over the kidneys. There is no evidence of a mass. Impression by Dr. Avila shows nonacute abdomen with no change. Disposition Clinical Impression: Vomiting and diarrhea, Gastroenteritis Disposition: HOME SELF-CARE Condition: Good Instructions: Acute Nausea and Vomiting (ED), Acute Diarrhea (ED) Additional Instructions: Start with clear liquid diet and advance as tolerated. Take Reglan as needed for vomiting. Follow-up with the primary care physician for recheck in 1-2 days. Return here immediate for any new, worsening, or concerning symptoms. Prescriptions: Metoclopramide [Reglan] 10 mg PO Q8H #10 tab Referrals: Susu Jo MD [Primary Care Provider] - 1-2 days Time of Disposition: 01:03
[2017-05-17 22:52] LABS: Basophils % (A) 0 %; Eosinophils % (A) 0 %; HCT 37.6 % (34.0-46.0); HGB 12.4 gm/dL (11.4-16.0); Lymphocytes # (A) 0.5 k/uL (1.0-4.8); Lymphocytes % (A) 4 %; MCH 28.2 pg (25.0-35.0); MCHC 33.1 g/dL (31.0-37.0); MCV 85.2 fL (80.0-100.0); Mean Platelet Volume 7.1; Monocytes # (A) 0.3 k/uL (0-1.0); Monocytes % (A) 3 %; Neutrophils # (A) 9.9 k/uL (1.3-7.7); Neutrophils % (A) 92 %; RBC 4.41 m/uL (3.80-5.40); RDW 13.6 % (11.5-15.5); WBC 10.8 k/uL (3.8-10.6)
[2017-05-17 22:54] LABS: Platelet Count 505 k/uL (150-450)
[2017-05-17 22:58] LABS: ALT 38 U/L (9-52); AST 34 U/L (14-36); Albumin 3.7 g/dL (3.5-5.0); Alkaline Phosphatase 151 U/L (38-126); Amylase 48 U/L (30-110); Anion Gap 13 mmol/L; Blood Urea Nitrogen 17 mg/dL (7-17); Calcium 9.8 mg/dL (8.4-10.2); Carbon Dioxide 29 mmol/L (22-30); Chloride 94 mmol/L (98-107); Glucose 145 mg/dL (74-99); Lipase 45 U/L (23-300); Potassium 3.3 mmol/L (3.5-5.1); Sodium 136 mmol/L (137-145); Total Protein 6.3 g/dL (6.3-8.2)
[2017-05-17] MEDS ORDERED: SODIUM CHLORIDE 0.9% 500 ML IV STA (23:12)
--- NOTE | 2017-05-17 23:22 | XR ---
EXAMINATION TYPE: XR KUB DATE OF EXAM: 05/17/2017 COMPARISON: 03/26/2012 HISTORY: Nausea and vomiting TECHNIQUE: Single view FINDINGS: There is no sign of intestinal obstruction or pneumoperitoneum. Fecal pattern is normal. Th ere is a right hip prosthesis. There are no pathologic calcifications over the kidneys. There is no e vidence of a mass. IMPRESSION: Nonacute abdomen. No change.
[2017-05-17 23:26] LABS: Creatine Kinase 65 U/L (30-135)
[2017-05-17 23:39] LABS: Creatine Kinase MB 0.9 ng/mL (0.0-2.4); Troponin I <0.012 ng/mL (0.000-0.034)
[2017-05-18] MEDS ORDERED: METOCLOPRAMIDE 5 MG/ML 2 ML VIAL IVP STA (00:05)
[2017-05-18] MEDS ORDERED: diphenhydrAMINE 50 MG/ML 1 ML VIAL IVP STA (00:05)
[2017-05-18 00:10] LABS: Appearance,Urine Clear (Clear); Bilirubin,Urine Negative (Negative); Blood,Urine Negative (Negative); Color,Urine Yellow; Glucose,Urine (UA) Negative (Negative); Ketones,Urine 2+ (Negative); Leukocyte Esterase,Urine Negative (Negative); Nitrite,Urine Negative (Negative); Protein,Urine Trace (Negative); Specific Gravity,Urine 1.014 (1.001-1.035); Urobilinogen,Urine <2.0 mg/dL (<2.0)
[2017-05-18 00:16] VITALS: BP 141/63; PULSE 84; RESP 18; TEMP 98
[2017-05-18] MEDS ORDERED: MORPHINE SULFATE 4 MG/ML SYRINGE IM STA (01:37)
== END 2017-05-18 01:44 | disposition home or self-care (01) ==
LOC: EC 21:58
DX: K52.9 Noninfective gastroenteritis and colitis, unspecified (principal); D72.829 Elevated white blood cell count, unspecified; I48.91 Unspecified atrial fibrillation; I11.0 Hypertensive heart disease with heart failure; I50.9 Heart failure, unspecified; F41.9 Anxiety disorder, unspecified; Z85.43 Personal history of malignant neoplasm of ovary; Z90.49 Acquired absence of other specified parts of digestive tract; Z98.890 Other specified postprocedural states; Z87.891 Personal history of nicotine dependence; Z88.1 Allergy status to other antibiotic agents; Z88.0 Allergy status to penicillin; Z88.8 Allergy status to other drugs, medicaments and biological substances; Z79.01 Long term (current) use of anticoagulants; Z79.899 Other long term (current) drug therapy
CPT/HCPCS: 99284; 96374; 96375 ×2; 96372; 96361 ×2; 36415; 93005; 80053; 82150; 82550; 82553; 83690; 84484; 85025; 81003; 74018; J2270; J1200; J2765; J2405

== ENCOUNTER → 2020-01-06 | Outpatient (CLI) | payer OTHER, MEDICARE, BC ==
--- NOTE | 2020-01-06 11:34 | XR ---
EXAMINATION TYPE: XR chest 2V DATE OF EXAM: 01/06/2020 COMPARISON: 05/01/2017 TECHNIQUE: PA and lateral views submitted. HISTORY: Shortness of breath FINDINGS: The lungs are clear and there is no pneumothorax, pleural effusion, or focal pneumonia. Cardiac dev ice seen in there is chronic rib deformities. No overt failure. Diffuse osteopenia with arthropathy o f the shoulders. Heart size normal. Hypertrophic and degenerative change of the spine. IMPRESSION: 1. No acute process. Correlate for COPD.
== END | disposition home or self-care (01) ==
LOC: RADXRMAIN 11:02
PROVIDERS: ATTEND Internal Medicine
DX: R06.02 Shortness of breath (principal)
CPT/HCPCS: 71046

== ENCOUNTER → 2020-04-14 | Outpatient (CLI) | payer MEDICARE, BC ==
--- NOTE | 2020-04-14 16:04 | XR ---
EXAMINATION TYPE: XR Hip Complete LT DATE OF EXAM: 04/14/2020 COMPARISON: NONE HISTORY: Pain TECHNIQUE: 2 views submitted FINDINGS: There is no evidence of erosive change or acute fracture. There is moderate to severe narrowing of th e hip joint with hypertrophic spurring. Mild diffuse osteopenia. IMPRESSION: 1. Moderate to severe arthropathy.
--- NOTE | 2020-04-14 16:07 | XR ---
EXAM TYPE: LUMBAR SPINE X RAY SERIES COMPARISON: NONE HISTORY: Pain TECHNIQUE: 4 views are submitted. FINDINGS: Diffuse osteopenia. There is multilevel hypertrophic and degenerative changes with the vacuum disc no eugenia at L2-L3. Minimal anterolisthesis L4 on L5. Severe facet arthropathy at L4-5 and L5-S1. Vascular calcifications noted. Pedicles intact. Calcifications in the upper pelvis likely vascular. Calcificat ion left upper quadrant nonspecific but likely vascular. Metallic lead incidentally noted. IMPRESSION: 1. Diffuse osteopenia with multilevel degenerative disc disease. Severe changes at L2-L3. 2. Severe facet arthropathy L4-5 and L5-S1 with minimal anterolisthesis L4 on L5.
== END | disposition home or self-care (01) ==
LOC: RADXRMAIN 14:46
PROVIDERS: ATTEND Internal Medicine
DX: M51.36 Other intervertebral disc degeneration, lumbar region (principal); M43.16 Spondylolisthesis, lumbar region; M47.816 Spondylosis without myelopathy or radiculopathy, lumbar region; M47.817 Spondylosis without myelopathy or radiculopathy, lumbosacral region; M85.88 Other specified disorders of bone density and structure, other site; M16.12 Unilateral primary osteoarthritis, left hip
CPT/HCPCS: 72100; 73502

== ENCOUNTER 2021-08-10 13:44 | Emergency (ER) | payer MEDICARE, BC ==
--- NOTE | 2021-08-10 14:51 | ED ---
General Adult HPI - General Chief complaint: Fever Stated complaint: wants covid infusion, sent by Jo[facility] Time Seen by Provider: 08/10/21 14:05 Source: patient, RN notes reviewed, old records reviewed Mode of arrival: ambulatory Limitations: no limitations - History of Present Illness Initial comments: This is an 86-year-old female presents emergency department stating that she has had 2 days of cough and thirsty and a mild headache. Patient states she went to see her primary medical care doctor she was diagnosed with COVID. She came in here for monoclonal antibodies. Patient denies any shortness of breath or chest pain. Patient denies palpitations. Patient denies abdominal pain patient denies nausea vomiting diarrhea. Patient states she took her temperature today she did not have a temperature. Patient states she did get the COVID vaccine but did not get the booster. - Related Data Home Medications Medication Instructions Recorded Confirmed Warfarin [Coumadin] 5 mg PO MOTUWEFRSA 08/28/13 05/17/17 Chlorthalidone 50 mg PO DAILY@0805/22/14 05/17/17 Cholecalciferol [Vitamin D3 (25 1,000 unit PO DAILY@17005/22/14 05/17/17 Mcg = 1000 Iu)] Warfarin [Coumadin] 7.5 mg PO SUTH 05/22/14 05/17/17 Potassium 198 mg PO DAILY@1700 04/19/17 05/17/17 Vitamin B Complex 1 cap PO DAILY@1700 04/19/17 05/17/17 ALPRAZolam [Xanax] 0.25 mg PO HS@2100 05/17/17 05/17/17 Acetaminophen Tab [Tylenol Tab] 650 mg PO Q4H 05/17/17 05/17/17 Digoxin [Lanoxin] 125 mcg PO DAILY@0600 05/17/17 05/17/17 Diltiazem Cd [Cardizem CD] 180 mg PO DAILY@0800 05/17/17 05/17/17 Furosemide [Lasix] 20 mg PO DAILY@0600 05/17/17 05/17/17 HYDROcodone/APAP 7.5-325MG [[place] 1 - 2 tab PO Q4H PRN 05/17/17 05/17/17 7.5-325] Magnesium Hydroxide [Milk of 2,400 mg PO ONCE PRN 05/17/17 05/17/17 Magnesia] Metoprolol Tartrate [Lopressor] 50 mg PO TID@0600,1400,2100 05/17/17 05/17/17 Na Phos,M-B/Na Phos,Di-Ba [Fleet 133 ml RECTAL ONCE PRN 05/17/17 05/17/17 Adult] Ondansetron [Zofran] 4 mg PO TID PRN 05/17/17 05/17/17 bisacodyL [Dulcolax] 10 mg RECTAL HS PRN 05/17/17 05/17/17 Previous Rx's Medication Instructions Recorded Sennosides [Senokot] 1 tab PO BID #60 tablet 05/03/17 ALPRAZolam [Xanax] 0.5 mg PO BID PRN #30 tab 05/04/17 Metoclopramide [Reglan] 10 mg PO Q8H #10 tab 05/18/17 Allergies Allergy/AdvReac Type Severity Reaction Status Date / Time Nitroimidazoles Allergy Unknown Verified 08/10/21 14:01 Tetracyclines Allergy Unknown Verified 08/10/21 14:01 niacin AdvReac Unknown Verified 08/10/21 14:01 Niacin Preparations AdvReac Unknown Verified 08/10/21 14:01 pantoprazole sodium AdvReac Nausea & Verified 08/10/21 14:01 [From Protonix] Vomiting Penicillins AdvReac COULDN'T Verified 08/10/21 14:01 WALK NEXT DAY AFTER TAKING Review of Systems ROS Statement: Those systems with pertinent positive or pertinent negative responses have been documented in the HPI. ROS Other: All systems not noted in ROS Statement are negative. Past Medical History Past Medical History: Atrial Fibrillation, Heart Failure, Hyperlipidemia, Hypertension Additional Past Medical History / Comment(s): ovarian CA 1980 History of Any Multi-Drug Resistant Organisms: None Reported Past Surgical History: Appendectomy, Cardiac Ablation, Hernia Repair, Hysterectomy, Joint Replacement, Pacemaker Additional Past Surgical History / Comment(s): ovarian surgery, hemmorhoid surgery, (meditronic) pacemaker placed in 05/2014,cardiac ablation, right hip replacement Past Anesthesia/Blood Transfusion Reactions: No Reported Reaction Additional Past Anesthesia/Blood Transfusion Reaction / Comment(s): unknown family hx.no problems with prior blood transfusion > 40 yrs ago Type of Cardiac Device: Permanent Pacemaker Device Placement Date:: 05/2014 Past Psychological History: Anxiety Smoking Status: Never smoker Past Alcohol Use History: None Reported Past Drug Use History: None Reported - Past Family History Mother Family Medical History: Cancer Father History Unknown: Yes Additional Family Medical History / Comment(s): very early General Exam - General Exam Comments Initial Comments: GENERAL: Patient is well-developed and well-nourished. Patient is nontoxic and well- hydrated and is in mild distress. ENT: Neck is soft and supple. No significant lymphadenopathy is noted. Oropharynx is clear. Moist mucous membranes. Neck has full range of motion without eliciting any pain. EYES: The sclera were anicteric and conjunctiva were pink and moist. Extraocular movements were intact and pupils were equal round and reactive to light. Eyelids were unremarkable. PULMONARY: Unlabored respirations. Good breath sounds bilaterally. No audible rales rhonchi or wheezing was noted. CARDIOVASCULAR: There is a regular rate and rhythm without any murmurs gallops or rubs. ABDOMEN: Soft and nontender with normal bowel sounds. SKIN: Skin is clear with no lesions or rashes and otherwise unremarkable. NEUROLOGIC: Patient is alert and oriented x3. Cranial nerves II through XII are grossly intact. Motor and sensory are also intact. Normal speech, volume and content. Symmetrical smile. MUSCULOSKELETAL: Normal extremities with adequate strength and full range of motion. LYMPHATICS: No significant lymphadenopathy is noted PSYCHIATRIC: Normal psychiatric evaluation. Limitations: no limitations Course Vital Signs 08/10/21 14:01 Temperature 99.4 F Pulse Rate 77 Respiratory 16 Rate Blood Pressure 110/64 O2 Sat by Pulse 96 Oximetry Medical Decision Making - Medical Decision Making Patient will receive monoclonal antibodies. Patient tested positive for COVID - Lab Data Lab Results 08/10/21 Range/Units 14:17 Coronavirus (PCR) Detected A (Not Detectd) Disposition Clinical Impression: COVID-19 Disposition: HOME SELF-CARE Condition: Good Instructions (If sedation given, give patient instructions): COVID-19 (Coronavirus Disease 2019) (ED) Is patient prescribed a controlled substance at d/c from ED?: No Referrals: Amelia Cuenca MD [Primary Care Provider] - 1-2 days Time of Disposition: 15:10
[2021-08-10] MEDS ORDERED: BEBTELOVIMAB (EUA) 175 MG/2 ML VIAL IV ONE (15:45)
[2021-08-10 17:13] VITALS: BP 142/81; PULSE 87; RESP 14; TEMP 99
== END 2021-08-10 17:19 | disposition home or self-care (01) ==
LOC: EC 13:44
DX: U07.1 COVID-19 (principal); I11.0 Hypertensive heart disease with heart failure; I50.9 Heart failure, unspecified; I48.91 Unspecified atrial fibrillation; Z88.0 Allergy status to penicillin; Z88.1 Allergy status to other antibiotic agents; Z88.8 Allergy status to other drugs, medicaments and biological substances; Z79.01 Long term (current) use of anticoagulants; Z79.899 Other long term (current) drug therapy
CPT/HCPCS: 87635; 99283; Q0222

== ENCOUNTER → 2021-10-31 | Outpatient (CLI) | payer MEDICARE, BC ==
[2021-10-31 11:41] LABS: Prothrombin Time 112.3 sec (9.0-12.0)
[2021-10-31 11:48] LABS: INR >10.0 (<1.2)
== END | disposition home or self-care (01) ==
LOC: LABWHC1 10:54
PROVIDERS: ATTEND Nurse Practitioner Adult Health
DX: I48.11 Longstanding persistent atrial fibrillation (principal)
CPT/HCPCS: 36415; 85610

== ENCOUNTER → 2023-04-30 | Outpatient (CLI) | payer MEDICARE, BC ==
--- NOTE | 2023-04-30 10:17 | XR ---
EXAMINATION TYPE: XR chest 2V DATE OF EXAM: 04/30/2023 10:11 AM COMPARISON: Chest radiographs from 01/06/2020 TECHNIQUE: XR chest 2V Frontal and lateral views of the chest. CLINICAL INDICATION:Female, 88 years old with history of R05.9 Cough; FINDINGS: Lungs/Pleura: Prominent interstitial lung markings are seen scattered throughout the lungs. No eviden ce of focal consolidation, pneumothorax or pleural effusion. Pulmonary vascularity: Unremarkable. Heart/mediastinum: Cardiomediastinal silhouette is unremarkable. Atherosclerotic calcifications are seen in the aorta. Two lead cardiac conduction device overlying the left hemithorax with lead tips pr ojecting over the right ventricle and right atrium. Musculoskeletal: No acute osseous pathology. Remote right-sided rib fractures. IMPRESSION: Chronic changes without acute pulmonary process. No significant change from prior.
== END | disposition home or self-care (01) ==
LOC: RADXRMAIN 09:56
PROVIDERS: ATTEND Internal Medicine
DX: J98.4 Other disorders of lung (principal); R05.9 Cough, unspecified
CPT/HCPCS: 71046

== ENCOUNTER → 2023-05-15 | Outpatient (CLI) | payer MEDICARE, BC ==
--- NOTE | 2023-05-15 16:19 | CT ---
EXAMINATION TYPE: CT facial bones wo con DATE OF EXAM: 05/15/2023 COMPARISON: None HISTORY: CHRONIC SINUSITIS CT DLP: 648.7 mGycm CONTRAST: 0 mL of Isovue 300 The paranasal sinuses are examined in the axial plane at 2 mm thick sections. Reconstructed images i n the coronal plane were obtained. There is dental amalgam scatter artifact Tiny retention cyst on the left maxillary sinus. The ethmoid air cells are clear. The sphenoid sinu ses are clear. The frontal sinuses are clear. The septum is evaluated. There is septal deviation to the anterior left. The ostiomeatal units are patent. IMPRESSION: 1. Small retention cyst medial left maxillary sinus. Paranasal sinuses are otherwise clear. 2. Left septal deviation
== END | disposition home or self-care (01) ==
LOC: RADCTMAIN 12:53
PROVIDERS: ATTEND Internal Medicine
DX: J32.9 Chronic sinusitis, unspecified (principal); J34.2 Deviated nasal septum
CPT/HCPCS: 70486

== ENCOUNTER 2023-07-12 16:40 | Emergency (ER) | payer MEDICARE, BC ==
[2023-07-12 17:00] VITALS: TEMP 97.4
[2023-07-12 17:30] LABS: HCT 45.6 % (34.0-46.0); HGB 14.7 gm/dL (11.4-16.0); MCH 28.9 pg (25.0-35.0); MCHC 32.4 g/dL (31.0-37.0); MCV 89.3 fL (80.0-100.0); Mean Platelet Volume 8.8; Platelet Count 129 k/uL (150-450); RDW 13.7 % (11.5-15.5); WBC 5.7 k/uL (3.8-10.6)
[2023-07-12 17:37] LABS: Appearance,Urine Clear (Clear); Bilirubin,Urine Negative (Negative); Blood,Urine Negative (Negative); Color,Urine Light Yellow; Glucose,Urine (UA) Negative (Negative); Ketones,Urine Negative (Negative); Leukocyte Esterase,Urine Moderate (Negative); Mucus,Urine Rare /hpf; Nitrite,Urine Negative (Negative); PH, Urine 5.5 (5.0-8.0); Protein,Urine Trace (Negative); RBC,Urine 2 /hpf (0-5); Specific Gravity,Urine 1.024 (1.001-1.035); Squamous Epithelial Cell,Urine <1 /hpf (0-4); Urobilinogen,Urine <2.0 mg/dL (<2.0); WBC,Urine 9 /hpf (0-5)
[2023-07-12] MEDS: SODIUM CHLORIDE 0.9% 1,000 ML IV STA (17:40)
[2023-07-12] MEDS: ACETAMINOPHEN TAB 500 MG TAB PO STA (17:41)
[2023-07-12] MEDS: ONDANSETRON 4 MG/2 ML VIAL IVP STA (17:41)
[2023-07-12 18:04] LABS: INR 1.9 (<1.2); Partial Thromboplastin Time 33.6 sec (22.0-30.0); Prothrombin Time 19.1 sec (10.0-12.5)
[2023-07-12 18:47] LABS: Eosinophils # (M) 0.06 k/uL (0-0.7); Lymphocytes # (M) 1.37 k/uL (1.0-4.8); Neutrophils # (M) 3.48 k/uL (1.3-7.7); Neutrophils % (M) 61 %; Nucleated Red Blood Cells 0 /100 WBC (0-0); Total Cells Counted 100
[2023-07-12 18:56] LABS: ALT 20 U/L (4-34); AST 30 U/L (14-36); African American GFR (CKD) 52 (>60 ml/min/1.73 sqM); Albumin 4.3 g/dL (3.5-5.0); Alkaline Phosphatase 109 U/L (38-126); Amylase 75 U/L (30-110); Anion Gap 10 mmol/L; Blood Urea Nitrogen 25 mg/dL (7-17); Calcium 9.1 mg/dL (8.4-10.2); Carbon Dioxide 19 mmol/L (22-30); Chloride 107 mmol/L (98-107); Glucose 100 mg/dL (74-99); Lipase 153 U/L (23-300); Non-African American GFR(CKD) 45 (>60 ml/min/1.73 sqM); Potassium 4.5 mmol/L (3.5-5.1); Sodium 136 mmol/L (137-145); Total Bilirubin 0.6 mg/dL (0.2-1.3); Total Protein 6.9 g/dL (6.3-8.2)
--- NOTE | 2023-07-12 21:25 | CT ---
EXAMINATION TYPE: CT abdomen pelvis w con CT DLP: 673 mGycm, Automated exposure control for dose reduction was used. DATE OF EXAM: 07/12/2023 7:44 PM COMPARISON: None. CLINICAL INDICATION:Female, 88 years old with history of abdominal pain llq; LEFT SIDE ABD PAIN TECHNIQUE: Axial CT of the abdomen and pelvis. Sagittal and coronal reformats were created on a [employer] workstation. Contrast used:80 mL of Isovue 300 with IV Contrast, (none if empty) Oral contrast used: without Oral Contrast (none if empty) FINDINGS: LOWER CHEST: Heart is mildly enlarged. Distal end of right ventricular pacemaker lead. Right coronary calcification. Mild scarring/senescent changes in the lung bases. No acute consolidation or sizable effusion. ABDOMEN LIVER: Unremarkable GALLBLADDER AND BILE DUCTS: Biliary tree is mildly prominent CBD is 8.6 mm, not excessive for patient age. Gallbladder is mildly prominent but not significantly distended beyond physiologic. No calcifie d gallstones are seen. PANCREAS: Unremarkable. SPLEEN: Nonspecific small hypodense lesion anteriorly, possibly cyst or hemangioma. ADRENAL GLANDS: Unremarkable. KIDNEYS AND URETERS: Kidneys enhance symmetrically. There is probable small cortical scar on the left . No evidence of mass or hydronephrosis. Mildly patulous renal pelves. PELVIS Assessment limited by artifact from right hip arthroplasty. BLADDER: Grossly unremarkable REPRODUCTIVE: Uterus likely absent, as are likely the ovaries. ABDOMEN & PELVIS STOMACH AND BOWEL: Stomach and small bowel are nondistended, no evidence of obstruction. The append ix is not seen with certainty but there is no inflammatory process seen in the pericecal region. Mod erate stool throughout the colon without acute abnormality shown. PERITONEUM/RETROPERITONEUM: No evidence of pneumoperitoneum or free fluid. VASCULATURE: Moderate atherosclerotic calcifications are present throughout the abdominal aorta and i ts branches. No evidence of aortic aneurysm. Portal veins are enhancing. Splenic vein is patent. LYMPH NODES: No enlarged nodes by CT size criteria. SOFT TISSUE/ABDOMINAL WALL: Unremarkable MUSCULOSKELETAL: Right total hip arthroplasty in place. Mild/moderate diffuse degenerative changes. N o clearly acute bony abnormality. IMPRESSION: No acute abnormality demonstrated in the abdomen or pelvis.
--- NOTE | 2023-07-12 22:07 | ED ---
General Adult HPI - General Chief complaint: Abdominal Pain Stated complaint: abd pain down to leg - L side Time Seen by Provider: 07/12/23 17:11 Source: patient Mode of arrival: ambulatory Limitations: no limitations - History of Present Illness Initial comments: Patient is an 88-year-old female presents emergency department complaining of ab dominal pain. States it is left lower quadrant in nature. Has a history of a hernia on that side and is concerned regarding this hernia. States no obvious hernia symptoms at this time. Has chronic constipation. States the pain seems to somewhat radiate down into her left thigh as well. Denies diarrhea. Denies nausea or vomiting. Denies any dysuria or hematuria but does have some left lower quadrant and suprapubic abdominal pain. Has no other acute complaints. Presents for further evaluation. Patient has a history of A-fib as well as hypertension and heart failure. Remote history of ovarian cancer. Presents for further evaluation. Status post appendectomy and hysterectomy. - Related Data Home Medications Medication Instructions Recorded Confirmed Warfarin [Coumadin] 5 mg PO [id number] 08/28/13 05/17/17 Chlorthalidone 50 mg PO DAILY@0805/22/14 05/17/17 Cholecalciferol [Vitamin D3 (25 1,000 unit PO DAILY@17005/22/14 05/17/17 Mcg = 1000 Iu)] Warfarin [Coumadin] 7.5 mg PO SUTH 05/22/14 05/17/17 Potassium 198 mg PO DAILY@1700 04/19/17 05/17/17 Vitamin B Complex 1 cap PO DAILY@1700 04/19/17 05/17/17 ALPRAZolam [Xanax] 0.25 mg PO HS@2100 05/17/17 05/17/17 Acetaminophen Tab [Tylenol Tab] 650 mg PO Q4H 05/17/17 05/17/17 Digoxin [Lanoxin] 125 mcg PO DAILY@0605/17/17 05/17/17 Diltiazem Cd [Cardizem CD] 180 mg PO DAILY@0800 05/17/17 05/17/17 Furosemide [Lasix] 20 mg PO DAILY@0600 05/17/17 05/17/17 HYDROcodone/APAP 7.5-325MG [Howard 1 - 2 tab PO Q4H PRN 05/17/17 05/17/17 7.5-325] Magnesium Hydroxide [Milk of 2,400 mg PO ONCE PRN 05/17/17 05/17/17 Magnesia] Metoprolol Tartrate [Lopressor] 50 mg PO TID@0600,1400,2100 05/17/17 05/17/17 Na Phos,M-B/Na Phos,Di-Ba [Fleet 133 ml RECTAL ONCE PRN 05/17/17 05/17/17 Adult] Ondansetron [Zofran] 4 mg PO TID PRN 05/17/17 05/17/17 bisacodyL [Dulcolax] 10 mg RECTAL HS PRN 05/17/17 05/17/17 Previous Rx's Medication Instructions Recorded Sennosides [Senokot] 1 tab PO BID #60 tablet 05/03/17 ALPRAZolam [Xanax] 0.5 mg PO BID PRN #30 tab 05/04/17 Metoclopramide [Reglan] 10 mg PO Q8H #10 tab 05/18/17 Nitrofurantoin Monohyd/M-Cryst 100 mg PO Q12HR 5 Days #10 cap 07/12/23 [Macrobid] Allergies Allergy/AdvReac Type Severity Reaction Status Date / Time Nitroimidazoles Allergy Unknown Verified 07/12/23 16:45 Tetracyclines Allergy Unknown Verified 07/12/23 16:45 niacin AdvReac Unknown Verified 07/12/23 16:45 Niacin Preparations AdvReac Unknown Verified 07/12/23 16:45 pantoprazole sodium AdvReac Nausea & Verified 07/12/23 16:45 [From Protonix] Vomiting Penicillins AdvReac COULDN'T Verified 07/12/23 16:45 WALK NEXT DAY AFTER TAKING Review of Systems ROS Statement: Those systems with pertinent positive or pertinent negative responses have been documented in the HPI. Review of Systems: CONST: Denies fever EYES: Denies blurry vision ENT: Denies nasal congestion C/V: Denies Chest pain RESP: Denies shortness of breath GI: Endorses abdominal pain : Denies dysuria SKIN: Denies rash. MSK: Denies joint pain. NEURO: Denies headache ROS Other: All systems not noted in ROS Statement are negative. Past Medical History Past Medical History: Atrial Fibrillation, Heart Failure, Hyperlipidemia, Hypertension Additional Past Medical History / Comment(s): ovarian CA 1980 History of Any Multi-Drug Resistant Organisms: None Reported Past Surgical History: Appendectomy, Cardiac Ablation, Hernia Repair, Hysterec gertrudis, Joint Replacement, Pacemaker Additional Past Surgical History / Comment(s): ovarian surgery, hemmorhoid surgery, (meditronic) pacemaker placed in 05/2014,cardiac ablation, right hip replacement Past Anesthesia/Blood Transfusion Reactions: No Reported Reaction Additional Past Anesthesia/Blood Transfusion Reaction / Comment(s): unknown family hx.no problems with prior blood transfusion > 40 yrs ago Type of Cardiac Device: Permanent Pacemaker Device Placement Date:: 05/2014 Past Psychological History: Anxiety Smoking Status: Never smoker Past Alcohol Use History: None Reported Past Drug Use History: None Reported - Past Family History Mother Family Medical History: Cancer Father History Unknown: Yes Additional Family Medical History / Comment(s): very early General Exam - General Exam Comments Initial Comments: General: Appears in no acute distress. HEAD: Normal with no signs of head trauma. EYES: PERRLA, EOMI, conjunctiva normal, no discharge. ENT: Hearing grossly intact, normal oropharynx. RESPIRATORY: Clear breath sounds bilaterally. No wheezes, rales, or rhonchi. C/V: Regular rate and rhythm. S1 and S2 auscultated, no edema, peripheral pulses 2+ and intact throughout ABD: Abdomen soft, nondistended. Tender palpation left lower quadrant and mildly in the suprapubic region. No guarding. No rebound tenderness. No peritoneal signs. EXT: Normal range of motion, no obvious deformity. No spinal tenderness to palpation. No step-offs or deformities appreciated. Normal range of motion of left hip. SKIN: No rashes or lesions observed on exposed skin. NEURO: Alert and oriented x 4. Limitations: no limitations Course Vital Signs 07/12/23 07/12/23 07/12/23 16:42 20:26 22:19 Temperature 97.4 F L Pulse Rate 87 84 88 Respiratory 18 18 16 Rate Blood Pressure 165/77 137/99 179/99 O2 Sat by Pulse 97 96 100 Oximetry Medical Decision Making - Medical Decision Making Was pt. sent in by a medical professional or institution (, PA, TURNING SANDER TENDER, urgent care, hospital, or detention...) When possible be specific @ -No Did you speak to anyone other than the patient for history (EMS, parent, family, police, friend...)? What history was obtained from this source @ -No Did you review nursing and triage notes (agree or disagree)? Why? @ -I reviewed and agree with nursing and triage notes Were old charts reviewed (outside hosp., previous admission, EMS record, old EKG, old radiological studies, urgent care reports/EKG's, detention records)? Report findings @ -Old charts reviewed Differential Diagnosis (chest pain, altered mental status, abdominal pain women, abdominal pain men, vaginal bleeding, weakness, fever, dyspnea, syncope, headache, dizziness, GI bleed, back pain, seizure, CVA, palpatations, mental health, musculoskeletal)? @ -Differential Abdominal Pain Women: Appendicitis, Cholecystitis, diverticulosis, ischemic bowel, pancreatitis, hepatitis, UTI, gastroenteritis, AAA, incarcerated hernia, bowel obstruction, constipation, inflammatory bowel, hepatitis, peptic ulcer disease, splenic infarction, perforated viscus, vulvitis, ovarian torsion, PID, kidney stone, placenta abruption, this is not meant to be an all-inclusive list EKG interpreted by me (3pts min.). @ -None done X-rays interpreted by me (1pt min.). @ -None done CT interpreted by me (1pt min.). @ -CT abdomen pelvis negative for any obvious acute intra-abdominal process. U/S interpreted by me (1pt. min.). @ -None done What testing was considered but not performed or refused? (CT, X-rays, U/S, labs)? Why? @ -None What meds were considered but not given or refused? Why? @ -None Did you discuss the management of the patient with other professionals (professionals i.e. , PA, TURNING SANDER TENDER, lab, RT, psych nurse, director of social services, dolly operator, teacher, child support officer, pillowcase maker)? Give summary @ -No Was smoking cessation discussed for >3mins.? @ -No Was critical care preformed (if so, how long)? @ -No Were there social determinants of health that impacted care today? How? (Homelessness, low income, unemployed, alcoholism, drug addiction, transportation, low edu. Level, literacy, decrease access to med. care, assisted, rehab)? @ -No Was there de-escalation of care discussed even if they declined (Discuss DNR or withdrawal of care, Hospice)? DNR status @ -No What co-morbidities impacted this encounter? (DM, HTN, Smoking, COPD, CAD, Cancer, CVA, ARF, Chemo, Hep., AIDS, mental health diagnosis, sleep apnea, morbid obesity)? @ -None Was patient admitted / discharged? Hospital course, mention meds given and route, prescriptions, significant lab abnormalities, going to OR and other pe rtinent info. @ -Patient presents for evaluation of left-sided abdominal pain with some radiation of the left thigh. Discussed with the patient we will obtain abdominal labs as well as CT imaging of the abdomen pelvis. Patient was in agreement this plan. Vital signs are within acceptable limits. She will be symptomatically treated with IV fluids, Zofran, Tylenol. She was in agreement this plan. Laboratory studies remarkable for slightly subtherapeutic INR of 1.9. Urinalysis is borderline for possible early UTI. Remainder the labs unremarkable. CT imaging negative for any obvious acute intra-abdominal process. There was a long delay in obtaining results of the CT imaging from radiology. On reevaluation, I updated the patient. No clear indication for admission at this time and I believe it is safer to be discharged home with close follow-up with Dr. Cuenca. We discussed results and she was in agreement this plan. I did discuss with her and I would like her on antibiotics which she was in agreement with. Strict return precautions discussed. I will provide the patient with a prescription for Macrobid. I instructed the patient to follow up with their PCP in the next 1-3 days.. I explained that the patient should return to the emergency department if they experience any worsening symptoms. Strict return precautions were discussed with the patient. The patient expressed understanding of these instructions. I answered all questions that the patient had. The patient was discharged home in good condition with their prescriptions and follow up information. Undiagnosed new problem with uncertain prognosis? @ -No Drug Therapy requiring intensive monitoring for toxicity (Heparin, Nitro, Insulin, Cardizem)? @ -No Were any procedures done? @ -No Diagnosis/symptom? @ -Abdominal pain of unknown etiology, UTI Acute, or Chronic, or Acute on Chronic? @ -Acute Uncomplicated (without systemic symptoms) or Complicated (systemic symptoms)? @ -Uncomplicated Side effects of treatment? @ -No Exacerbation, Progression, or Severe Exacerbation? @ -No Poses a threat to life or bodily function? How? (Chest pain, USA, NM, pneumonia, PE, COPD, DKA, ARF, appy, cholecystitis, CVA, Diverticulitis, Homicidal, Suicidal, threat to staff... and all critical care pts) @ -Unlikely - Lab Data Result diagrams: 07/12/23 17:18 07/12/23 17:18 Lab Results 07/12/23 07/12/23 07/12/23 Range/Units 17:18 17:18 17:18 WBC 5.7 (3.8-10.6) k/uL RBC 5.10 (3.80-5.40) m/uL Hgb 14.7 (11.4-16.0) gm/dL Hct 45.6 (34.0-46.0) % MCV 89.3 (80.0-100.0) fL MCH 28.9 (25.0-35.0) pg MCHC 32.4 (31.0-37.0) g/dL RDW 13.7 (11.5-15.5) % Plt Count 129 L (150-450) k/uL MPV 8.8 Neutrophils % (Manual) 61 % Lymphocytes % (Manual) 24 % Monocytes % (Manual) 14 % Eosinophils % (Manual) 1 % Neutrophils # (Manual) 3.48 (1.3-7.7) k/uL Lymphocytes # (Manual) 1.37 (1.0-4.8) k/uL Monocytes # (Manual) 0.80 (0-1.0) k/uL Eosinophils # (Manual) 0.06 (0-0.7) k/uL Nucleated RBCs 0 (0-0) /100 WBC Manual Slide Review Performed PT 19.1 H (10.0-12.5) sec INR 1.9 H (<1.2) APTT 33.6 H (22.0-30.0) sec Sodium (137-145) mmol/L Potassium (3.5-5.1) mmol/L Chloride (98-107) mmol/L Carbon Dioxide (22-30) mmol/L Anion Gap mmol/L BUN (7-17) mg/dL Creatinine (0.52-1.04) mg/dL Est GFR (CKD-EPI)AfAm (>60 ml/min/1.73 sqM) Est GFR (CKD-EPI)NonAf (>60 ml/min/1.73 sqM) Glucose (74-99) mg/dL Plasma Lactic Acid Hamzah (0.7-2.0) mmol/L Calcium (8.4-10.2) mg/dL Total Bilirubin (0.2-1.3) mg/dL AST (14-36) U/L ALT (4-34) U/L Alkaline Phosphatase (38-126) U/L Total Protein (6.3-8.2) g/dL Albumin (3.5-5.0) g/dL Amylase (30-110) U/L Lipase (23-300) U/L Urine Color Light Yellow Urine Appearance Clear (Clear) Urine pH 5.5 (5.0-8.0) Ur Specific [place] 1.024 (1.001-1.035) Urine Protein Trace H (Negative) Urine Glucose (UA) Negative (Negative) Urine Ketones Negative (Negative) Urine Blood Negative (Negative) Urine Nitrite Negative (Negative) Urine Bilirubin Negative (Negative) Urine Urobilinogen <2.0 (<2.0) mg/dL Ur Leukocyte Esterase Moderate H (Negative) Urine RBC 2 (0-5) /hpf Urine WBC 9 H (0-5) /hpf Ur Squamous Epith Cells <1 (0-4) /hpf Urine Mucus Rare H (None) /hpf Influenza Type A (PCR) (Not Detectd) Influenza Type B (PCR) (Not Detectd) RSV (PCR) (Not Detectd) SARS-CoV-2 (PCR) (Not Detectd) 07/12/23 07/12/23 07/12/23 Range/Units 17:18 17:18 17:22 WBC (3.8-10.6) k/uL RBC (3.80-5.40) m/uL Hgb (11.4-16.0) gm/dL Hct (34.0-46.0) % MCV (80.0-100.0) fL MCH (25.0-35.0) pg MCHC (31.0-37.0) g/dL RDW (11.5-15.5) % Plt Count (150-450) k/uL MPV Neutrophils % (Manual) % Lymphocytes % (Manual) % Monocytes % (Manual) % Eosinophils % (Manual) % Neutrophils # (Manual) (1.3-7.7) k/uL Lymphocytes # (Manual) (1.0-4.8) k/uL Monocytes # (Manual) (0-1.0) k/uL Eosinophils # (Manual) (0-0.7) k/uL Nucleated RBCs (0-0) /100 WBC Manual Slide Review PT (10.0-12.5) sec INR (<1.2) APTT (22.0-30.0) sec Sodium 136 L (137-145) mmol/L Potassium 4.5 (3.5-5.1) mmol/L Chloride 107 (98-107) mmol/L Carbon Dioxide 19 L (22-30) mmol/L Anion Gap 10 mmol/L BUN 25 H (7-17) mg/dL Creatinine 1.09 H (0.52-1.04) mg/dL Est GFR (CKD-EPI)AfAm 52 (>60 ml/min/1.73 sqM) Est GFR (CKD-EPI)NonAf 45 (>60 ml/min/1.73 sqM) Glucose 100 H (74-99) mg/dL Plasma Lactic Acid [place] 1.1 (0.7-2.0) mmol/L Calcium 9.1 (8.4-10.2) mg/dL Total Bilirubin 0.6 (0.2-1.3) mg/dL AST 30 (14-36) U/L ALT 20 (4-34) U/L Alkaline Phosphatase 109 (38-126) U/L Total Protein 6.9 (6.3-8.2) g/dL Albumin 4.3 (3.5-5.0) g/dL Amylase 75 (30-110) U/L Lipase 153 (23-300) U/L Urine Color Urine Appearance (Clear) Urine pH (5.0-8.0) Ur Specific [place] (1.001-1.035) Urine Protein (Negative) Urine Glucose (UA) (Negative) Urine Ketones (Negative) Urine Blood (Negative) Urine Nitrite (Negative) Urine Bilirubin (Negative) Urine Urobilinogen (<2.0) mg/dL Ur Leukocyte Esterase (Negative) Urine RBC (0-5) /hpf Urine WBC (0-5) /hpf Ur Squamous Epith Cells (0-4) /hpf Urine Mucus (None) /hpf Influenza Type A (PCR) Not Detected (Not Detectd) Influenza Type B (PCR) Not Detected (Not Detectd) RSV (PCR) Not Detected (Not Detectd) SARS-CoV-2 (PCR) Not Detected (Not Detectd) Disposition Clinical Impression: Abdominal pain of unknown etiology, UTI (urinary tract infection) Disposition: HOME SELF-CARE Condition: Good Instructions (If sedation given, give patient instructions): Urinary Tract Infection in Women (ED), Abdominal Pain (ED) Prescriptions: Nitrofurantoin Monohyd/M-Cryst [Macrobid] 100 mg PO Q12HR 5 Days #10 cap Is patient prescribed a controlled substance at d/c from ED?: No Referrals: Amelia Cuenca MD [Primary Care Provider] - 1-2 days Time of Disposition: 22:00
[2023-07-12] MEDS: NITROFURANTOIN MONOHYD/M-CRYST 100 MG CAP PO STA (22:15)
[2023-07-12 22:31] VITALS: BP 179/99; PULSE 88; RESP 16
== END 2023-07-12 22:27 | disposition home or self-care (01) ==
LOC: EC 16:40
DX: N39.0 Urinary tract infection, site not specified (principal); Z88.0 Allergy status to penicillin; Z88.8 Allergy status to other drugs, medicaments and biological substances; Z11.52 Encounter for screening for COVID-19
CPT/HCPCS: 36415; 80053; 82150; 83605; 83690; 85025; 85610; 85730; 81001; 87086; 87636; 74177; 99284; 96374; 96361; J2405; Q9967

== ENCOUNTER → 2023-07-19 | Outpatient (CLI) | payer MEDICARE, BC ==
--- NOTE | 2023-07-19 11:12 | XR ---
EXAMINATION TYPE: XR Hip Complete LT DATE OF EXAM: 07/19/2023 10:09 AM CLINICAL INDICATION:Female, 88 years old with history of R52 L hip pain; [facility] COMPARISON: 04/14/2020. TECHNIQUE: XR Hip Complete LT; hip was examined in the frontal and lateral projections and a AP pelvi s. FINDINGS: No evidence for acute process, joint dislocation or significant soft tissue swelling. Osteo phyte formation of the superior acetabulum of the hip. There is joint space narrowing. Atherosclerosis of the arterial vasculature. IMPRESSION: 1. No evidence for acute process. 2. Moderate hip osteoarthrosis.
== END | disposition home or self-care (01) ==
LOC: RADXRMAIN 09:36
PROVIDERS: ATTEND Internal Medicine
DX: M16.12 Unilateral primary osteoarthritis, left hip (principal)
CPT/HCPCS: 73502

== ENCOUNTER 2023-10-08 10:58 | Emergency (ER) | payer MEDICARE, BC ==
[2023-10-08 11:06] VITALS: TEMP 97
--- NOTE | 2023-10-08 12:02 | US ---
EXAMINATION TYPE: US venous doppler duplex LE RT DATE OF EXAM: 10/08/2023 11:39 AM COMPARISON: NONE CLINICAL INDICATION: Female, 88 years old with history of Leg pain and swelling; Right leg edema SIDE PERFORMED: Right TECHNIQUE: The lower extremity deep venous system is examined utilizing real time linear array sonog hardik with graded compression, doppler sonography and color-flow sonography. VESSELS IMAGED: Common Femoral Vein Deep Femoral Vein Greater Saphenous Vein * Femoral Vein Popliteal Vein Small Saphenous Vein * Proximal Calf Veins (* superficial vessels) Right Leg: Negative for DVT IMPRESSION: Grayscale, color doppler, spectral doppler imaging performed of the deep veins of the lo wer extremities. There is normal flow, compressibility, vascular waveforms.
--- NOTE | 2023-10-08 12:07 | ED ---
Extremity Problem HPI - General Chief complaint: Extremity Problem,Nontraumatic Stated complaint: leg swelling/redness Time Seen by Provider: 10/08/23 11:11 Source: patient, RN notes reviewed Mode of arrival: ambulatory Limitations: no limitations - History of Present Illness Initial comments: This is an 88-year-old female who presents to the emergency department for pain and swelling to the right lower leg. Denies any injuries. States that this has also occasionally felt hot. This is painful on occasions, primarily with movement and to the touch. Not in any significant pain when sitting still. She has not measured any fevers or chills. She had a similar issue a couple of years ago and states that it cleared up with antibiotics. Also states that she believes heat may be a contributing factor to this. She is on warfarin and denies any chest pain or shortness of breath associated with this. - Related Data Home Medications Medication Instructions Recorded Confirmed Warfarin [Coumadin] 5 mg PO [id number] 08/28/13 05/17/17 Chlorthalidone 50 mg PO DAILY@0805/22/14 05/17/17 Cholecalciferol [Vitamin D3 (25 1,000 unit PO DAILY@169905/22/14 05/17/17 Mcg = 1000 Iu)] Warfarin [Coumadin] 7.5 mg PO SUTH 05/22/14 05/17/17 Potassium 198 mg PO DAILY@169904/19/17 05/17/17 Vitamin B Complex 1 cap PO DAILY@169904/19/17 05/17/17 ALPRAZolam [Xanax] 0.25 mg PO HS@2100 05/17/17 05/17/17 Acetaminophen Tab [Tylenol Tab] 650 mg PO Q4H 05/17/17 05/17/17 Digoxin [Lanoxin] 125 mcg PO DAILY@59905/17/17 05/17/17 Diltiazem Cd [Cardizem CD] 180 mg PO DAILY@79905/17/17 05/17/17 Furosemide [Lasix] 20 mg PO DAILY@59905/17/17 05/17/17 HYDROcodone/APAP 7.5-325MG [[place] 1 - 2 tab PO Q4H PRN 05/17/17 05/17/17 7.5-325] Magnesium Hydroxide [Milk of 2,400 mg PO ONCE PRN 05/17/17 05/17/17 Magnesia] Metoprolol Tartrate [Lopressor] 50 mg PO TID@0600,1400,2100 05/17/17 05/17/17 Na Phos,M-B/Na Phos,Di-Ba [Fleet 133 ml RECTAL ONCE PRN 05/17/17 05/17/17 Adult] Ondansetron [Zofran] 4 mg PO TID PRN 05/17/17 05/17/17 bisacodyL [Dulcolax] 10 mg RECTAL HS PRN 05/17/17 05/17/17 Previous Rx's Medication Instructions Recorded Sennosides [Senokot] 1 tab PO BID #60 tablet 05/03/17 ALPRAZolam [Xanax] 0.5 mg PO BID PRN #30 tab 05/04/17 Metoclopramide [Reglan] 10 mg PO Q8H #10 tab 05/18/17 Nitrofurantoin Monohyd/M-Cryst 100 mg PO Q12HR 5 Days #10 cap 07/12/23 [Macrobid] Cephalexin [Keflex] 500 mg PO Q6HR 7 Days #28 cap 10/08/23 Allergies Allergy/AdvReac Type Severity Reaction Status Date / Time Nitroimidazoles Allergy Unknown Verified 07/12/23 16:45 Tetracyclines Allergy Unknown Verified 07/12/23 16:45 niacin AdvReac Unknown Verified 07/12/23 16:45 Niacin Preparations AdvReac Unknown Verified 07/12/23 16:45 pantoprazole sodium AdvReac Nausea & Verified 07/12/23 16:45 [From Protonix] Vomiting Penicillins AdvReac COULDN'T Verified 07/12/23 16:45 WALK NEXT DAY AFTER TAKING Review of Systems ROS Statement: Those systems with pertinent positive or pertinent negative responses have been documented in the HPI. ROS Other: All systems not noted in ROS Statement are negative. Past Medical History Past Medical History: Atrial Fibrillation, Heart Failure, Hyperlipidemia, Hypertension Additional Past Medical History / Comment(s): ovarian CA 1979 History of Any Multi-Drug Resistant Organisms: None Reported Past Surgical History: Appendectomy, Cardiac Ablation, Hernia Repair, Hysterectomy, Joint Replacement, Pacemaker Additional Past Surgical History / Comment(s): ovarian surgery, hemmorhoid surgery, (meditronic) pacemaker placed in 05/2014,cardiac ablation, right hip replacement Past Anesthesia/Blood Transfusion Reactions: No Reported Reaction Additional Past Anesthesia/Blood Transfusion Reaction / Comment(s): unknown family hx.no problems with prior blood transfusion > 40 yrs ago Type of Cardiac Device: Permanent Pacemaker Device Placement Date:: 05/2014 Past Psychological History: Anxiety Smoking Status: Never smoker Past Alcohol Use History: None Reported Past Drug Use History: None Reported - Past Family History Mother Family Medical History: Cancer Father History Unknown: Yes Additional Family Medical History / Comment(s): very early General Exam Limitations: no limitations General appearance: alert, in no apparent distress Head exam: Present: atraumatic, normocephalic, normal inspection Respiratory exam: Present: normal lung sounds bilaterally. Absent: respiratory distress, wheezes, rales, rhonchi, stridor Cardiovascular Exam: Present: regular rate, normal rhythm, normal heart sounds. Absent: systolic murmur, diastolic murmur, rubs, gallop, clicks Extremities exam: Present: other (Swelling, erythema, tenderness, and warmth to the distal aspect of the right lower extremity. 2+ DP and PT pulses.) Neurological exam: Present: alert, oriented X3, CN II-XII intact Psychiatric exam: Present: normal affect, normal mood Course Vital Signs 10/08/23 10/08/23 11:02 13:18 Temperature 97 F L Pulse Rate 87 80 Respiratory 20 16 Rate Blood Pressure 138/77 136/76 O2 Sat by Pulse 98 98 Oximetry Medical Decision Making - Medical Decision Making This is an 88-year-old female who presents to the emergency department for right leg pain and swelling. Was pt. sent in by a medical professional or institution? @ -No Did you speak to anyone other than the patient for history? @ -No Did you review nursing and triage notes? @ -Yes, and I agree, it is accurate with regards to the patient's symptoms. Were old charts reviewed? @ -No Differential Diagnosis? @ -Differential Leg Pain: Leg fracture, leg sprain, DVT, PVD, arterial insufficiency, iliac artery aneurysm, cellulitis, compartment syndrome, tendinopathy, nerve entrapment, piriformis syndrome, osteoarthritis, rhabdomyolysis, myositis, cramping from an electrolyte imbalance, this is not meant to be an all inclusive list. EKG interpreted by me (3pts min.)? @ -Not obtained X-rays interpreted by me (1pt min.)? @ -Not obtained CT interpreted by me (1pt min.)? @ -Not obtained U/S interpreted by me (1pt. min.)? @ -Duplex ultrasound of the right lower extremity obtained. My interpretation identifies no evidence of a DVT. What testing was considered but not performed? (CT, X-rays, U/S, labs)? Why? @ -None What meds were considered but not given? Why? @ -None Did you discuss the management of the patient with other professionals? @ -No Did you reconcile home meds? @ -No Was smoking cessation discussed for >3mins.? @ -No Was critical care preformed (if so, how long)? @ -No Were there social determinants of health that impacted care today? How? (Homelessness, low income, unemployed, alcoholism, drug addiction, transportation, low edu. Level, literacy, decrease access to med. care, fdc, re hab)? @ -No Was there de-escalation of care discussed even if they declined? (Discuss DNR or withdrawal of care, Hospice)? @ -No What co-morbidities impacted this encounter? (DM, HTN, Smoking, COPD, CAD, Cancer, CVA, Hep., AIDS, mental health diagnosis, sleep apnea, morbid obesity)? @ -A-fib Was patient admitted / discharged? @ -Discharged. Lab work demonstrates a mildly elevated CRP and was otherwise unremarkable. Duplex ultrasound of the right lower extremity obtained revealing no evidence of a DVT. Physical examination more so suggestive of a cellulitis. She was given a dose of Rocephin in the emergency department and a prescription for Keflex was provided. Advised follow-up with her PCP for reevaluation. Undiagnosed new problem with uncertain prognosis? @ -None Drug Therapy requiring intensive monitoring for toxicity (Heparin, Nitro, Insulin, Cardizem)? @ -None Were any procedures done? @ -None Diagnosis/symptom? @ -Cellulitis of right lower extremity Acute, or Chronic, or Acute on Chronic? @ -Acute Uncomplicated (without systemic symptoms) or Complicated (systemic symptoms)? @ -Uncomplicated Side effects of treatment? @ -None Exacerbation, Progression, or Severe Exacerbation] @ -Not applicable Poses a threat to life or bodily function? @ -No Return precautions reviewed in depth, the patient is instructed to return to the emergency department with any new, worsening, or concerning symptoms. Patient verbalized understanding. This case was discussed in detail with the attending ED physician, Dr. Newton. Presentation, findings, and treatment plan discussed in detail as well. - Lab Data Result diagrams: 10/08/23 11:44 10/08/23 11:44 Lab Results 10/08/23 10/08/23 Range/Units 11:44 11:44 WBC 6.7 (3.8-10.6) k/uL RBC 4.73 (3.80-5.40) m/uL Hgb 14.2 (11.4-16.0) gm/dL Hct 42.3 (34.0-46.0) % MCV 89.4 (80.0-100.0) fL MCH 30.1 (25.0-35.0) pg MCHC 33.6 (31.0-37.0) g/dL RDW 14.2 (11.5-15.5) % Plt Count 131 L (150-450) k/uL MPV 9.9 Neutrophils % 67 % Lymphocytes % 21 % Monocytes % 7 % Eosinophils % 1 % Basophils % 1 % Neutrophils # 4.5 (1.3-7.7) k/uL Lymphocytes # 1.4 (1.0-4.8) k/uL Monocytes # 0.5 (0-1.0) k/uL Eosinophils # 0.1 (0-0.7) k/uL Basophils # 0.0 (0-0.2) k/uL Sodium 137 (137-145) mmol/L Potassium 4.3 (3.5-5.1) mmol/L Chloride 104 (98-107) mmol/L Carbon Dioxide 27 (22-30) mmol/L Anion Gap 6 mmol/L BUN 23 H (7-17) mg/dL Creatinine 0.92 (0.52-1.04) mg/dL Est GFR (CKD-EPI)AfAm 64 (>60 ml/min/1.73 sqM) Est GFR (CKD-EPI)NonAf 56 (>60 ml/min/1.73 sqM) Glucose 91 (74-99) mg/dL Calcium 9.5 (8.4-10.2) mg/dL Total Bilirubin 1.3 (0.2-1.3) mg/dL AST 30 (14-36) U/L ALT 17 (4-34) U/L Alkaline Phosphatase 78 (38-126) U/L C-Reactive Protein 2.2 H (<1.0) mg/dL Total Protein 6.4 (6.3-8.2) g/dL Albumin 4.1 (3.5-5.0) g/dL - Radiology Data Radiology results: report reviewed, image reviewed Disposition Clinical Impression: Cellulitis of right leg Disposition: HOME SELF-CARE Instructions (If sedation given, give patient instructions): Cellulitis (ED) Additional Instructions: Return to the emergency department with any new, worsening, or concerning symptoms. Take the antibiotic as provided for 7 days. Take Tylenol as needed for pain relief. Follow up with your primary care provider in 1-2 days. Prescriptions: Cephalexin [Keflex] 500 mg PO Q6HR 7 Days #28 cap Is patient prescribed a controlled substance at d/c from ED?: No Referrals: Amelia Cuenca MD [Primary Care Provider] - 1-2 days Time of Disposition: 12:31
[2023-10-08 12:09] LABS: Basophils % (A) 1 %; Eosinophils # (A) 0.1 k/uL (0-0.7); Eosinophils % (A) 1 %; HCT 42.3 % (34.0-46.0); HGB 14.2 gm/dL (11.4-16.0); Lymphocytes # (A) 1.4 k/uL (1.0-4.8); Lymphocytes % (A) 21 %; MCH 30.1 pg (25.0-35.0); MCHC 33.6 g/dL (31.0-37.0); MCV 89.4 fL (80.0-100.0); Mean Platelet Volume 9.9; Monocytes # (A) 0.5 k/uL (0-1.0); Monocytes % (A) 7 %; Neutrophils # (A) 4.5 k/uL (1.3-7.7); Neutrophils % (A) 67 %; Platelet Count 131 k/uL (150-450); RBC 4.73 m/uL (3.80-5.40); RDW 14.2 % (11.5-15.5); WBC 6.7 k/uL (3.8-10.6)
[2023-10-08] MEDS: cefTRIAXone IN SWFI 1,000 MG/10 ML SYRINGE IVP STA (12:40)
[2023-10-08 12:45] LABS: C Reactive Protein 2.2 mg/dL (<1.0)
[2023-10-08 12:55] LABS: ALT 17 U/L (4-34); AST 30 U/L (14-36); African American GFR (CKD) 64 (>60 ml/min/1.73 sqM); Albumin 4.1 g/dL (3.5-5.0); Alkaline Phosphatase 78 U/L (38-126); Anion Gap 6 mmol/L; Blood Urea Nitrogen 23 mg/dL (7-17); Calcium 9.5 mg/dL (8.4-10.2); Carbon Dioxide 27 mmol/L (22-30); Chloride 104 mmol/L (98-107); Glucose 91 mg/dL (74-99); Non-African American GFR(CKD) 56 (>60 ml/min/1.73 sqM); Potassium 4.3 mmol/L (3.5-5.1); Sodium 137 mmol/L (137-145); Total Bilirubin 1.3 mg/dL (0.2-1.3); Total Protein 6.4 g/dL (6.3-8.2)
[2023-10-08 13:20] VITALS: BP 136/76; PULSE 80; RESP 16
== END 2023-10-08 13:20 | disposition home or self-care (01) ==
LOC: EC 10:58
DX: L03.115 Cellulitis of right lower limb (principal); Z88.0 Allergy status to penicillin; Z88.8 Allergy status to other drugs, medicaments and biological substances
CPT/HCPCS: 36415; 80053; 85025; 86140; 93971; 99283; 96374; J0696